=== PATIENT | female | born 1930 | race Caucasian/White ===

== ENCOUNTER 2016-07-04 02:49 | Inpatient (IN) | payer MEDICARE, OTHER ==
[2016-07-04] VITALS (8 sets, daily range): BP systolic 128–191; BP diastolic 60–94; PULSE 81–114; RESP 16–20; TEMP 97.5–99.5; O2SAT 94–100
[~2016-07-04] VITALS: Ht 165.1 cm; Wt 52.9 kg
[2016-07-04] MEDS ORDERED: PROPOFOL 200 MG/20 ML AMP IV ONE (03:00)
--- NOTE | 2016-07-04 03:34 | RADRPT ---
EXAM DATE/TIME: 07/04/2016 03:01 [facility] COMPARISON: No previous studies available for comparison. INDICATIONS : Right leg deformity from a fall. MEDICAL HISTORY : None. SURGICAL HISTORY : None. ENCOUNTER: Initial ACUITY: 1 day PAIN SCORE: 10/10 LOCATION: Right knee FINDINGS: A single limited lateral view of the right knee was obtained. The right knee is flexed. There is vinicius on artifact and the study is underpenetrated with poor bony detail. There is a fracture deformity of the distal femur with ill-defined fracture lines. There is overlying soft tissue swelling. There is o steopenia. CONCLUSION: 1. Limited single view suboptimal study. A repeat exam is recommended. 2. Distal femur fracture of indeterminate age but likely acute. Calderon Hart MD on July 04, 2016 at 3:30 Board Certified Radiologist. This report was verified electronically.
--- NOTE | 2016-07-04 03:34 | RADRPT ---
EXAM DATE/TIME: 07/04/2016 03:03 [facility] COMPARISON: No previous studies available for comparison. INDICATIONS : Shortness of breath. MEDICAL HISTORY : None. SURGICAL HISTORY : None. ENCOUNTER: Initial ACUITY: 1 day PAIN SCORE: 0/10 LOCATION: Bilateral chest FINDINGS: A single view of the chest demonstrates the lungs to be symmetrically aerated without evidence of mas s, infiltrate or effusion. The cardiomediastinal contours are unremarkable. Osseous structures are intact. There is overlying artifact. No echocardiogram leads. CONCLUSION: No acute disease. Calderon Hart MD on July 04, 2016 at 3:32 Board Certified Radiologist. This report was verified electronically.
[2016-07-04 03:44] LABS: BASOPHIL # 0.1 TH/MM3 (0-0.2); BASOPHIL % 0.3 % (0.0-2.0); EOSINOPHIL % 0.2 % (0.0-4.0); HEMATOCRIT 33.5 % (35.0-46.0); HEMO FLAGS DIFF FINAL; LYMPH % 6.1 % (9.0-44.0); LYMPHOCYTE # 1.3 TH/MM3 (1.0-4.8); MEAN CELL VOLUME 103.8 FL (80.0-100.0); MEAN CORPUSCULAR HGB CONC 32.7 % (32.0-36.0); MONO % 5.4 % (0.0-8.0); PLATELET COUNT 336 TH/MM3 (150-450); RED BLOOD COUNT 3.23 MIL/MM3 (4.00-5.30); RED CELL DISTRIBUTION WIDTH 15.6 % (11.6-17.2); WHITE BLOOD COUNT 21.6 TH/MM3 (4.0-11.0)
[2016-07-04 03:59] LABS: BICARBONATE 25.8 MEQ/L (21.0-32.0); POTASSIUM 3.7 MEQ/L (3.5-5.1)
[2016-07-04 04:31] LABS: BACTERIA, URINE RARE /hpf; BLOOD, URINE TRACE (NEG); COMMENT (UR) CULTURE INDICATED; CULTURE IF INDICATED CULTURE INDICATED; GLUCOSE,URINE NEG (NEG); KETONE, URINE NEG (NEG); MUCUS URINE FEW /lpf (OCC); NITRITE,URINE POS (NEG); PH, URINE 7.5 (5.0-8.5); URINE COLOR LIGHT-YELLOW (YELLW/STRAW)
--- NOTE | 2016-07-04 05:09 | PD ---
HPI Chief Complaint: Fall Time Seen by Provider: 02:49 Travel History International Travel<30 days: No Contact w/Intl Traveler<30days: No Traveled to known affect area: No History of Present Illness HPI Patient is an 85-year-old female presents emergency department for evaluation of right knee pain. Patient was apparently ambulating to the bathroom this morning when she slipped and fell. She is incredibly hard of hearing limiting her history. According to EMS she is normally alert and awake and oriented GCS of 15. She is sustained an assisted living facility for history rheumatoid arthritis. No history of loss of consciousness. She denies any head neck chest abdomen or pelvis pain. Symptoms happened just prior to arrival, she did receive morphine 10 mg IV in route with some pain relief. PFSH Past Medical History Anemia: Yes Arthritis: Yes Depression: Yes Hypertension: Yes Medical other: Yes (OSTEOPOROSIS) Social History Alcohol Use: No Tobacco Use: No Substance Use: No Allergies-Medications (Allergen,Severity, Reaction): Coded Allergies: No Known Allergies (Unverified , 07/04/16) Reported Meds & Prescriptions Reported Meds & Active Scripts Active Reported Acetaminophen 325 Mg Tab 650 Mg PO Q4-6H PRN Prednisone 5 Mg Tab 5 Mg PO DAILY Vitamin D (Cholecalciferol) 1,000 Unit Tab 5,000 Units PO DAILY Fosamax (Alendronate Sodium) 70 Mg Tab 70 Mg PO Q7D Remeron (Mirtazapine) 15 Mg Tab 15 Mg PO HS Methotrexate 2.5 Mg Tab 12.5 Mg PO Q7D Ocuvite (Multiple Vitamins W/ Minerals) 1 Tab 1 Tab PO DAILY Folic Acid 5 Mg Cap 1 Mg PO DAILY Celexa (Citalopram Hydrobromide) 20 Mg Tab 20 Mg PO DAILY Norvasc (Amlodipine Besylate) 5 Mg Tab 5 Mg PO DAILY Review of Systems Except as stated in HPI: all other systems reviewed are Neg Physical Exam Narrative GENERAL: Well-developed, thin appears quite uncomfortable. SKIN: Scattered bruises associated with IV start sites. HEAD: Atraumatic. Normocephalic. EYES: Pupils equal and round. No scleral icterus. No injection or drainage. ENT: No nasal bleeding or discharge. Mucous membranes pink and moist. NECK: Trachea midline. No JVD. CARDIOVASCULAR: Regularly tachycardic.. No murmur appreciated. RESPIRATORY: No accessory muscle use. Clear to auscultation. Breath sounds equal bilaterally. GASTROINTESTINAL: Abdomen soft, non-tender, nondistended. Hepatic and splenic margins not palpable. MUSCULOSKELETAL: There is an obvious deformity at the right knee/distal femur. Pulses motor and sensory intact distally in all 4 extremities. There is some bruising about the right lateral ankle, minimal tenderness at the medial malleolus. No tenderness at the hip, pelvis is stable. Left lower extremity is atraumatic, bilateral upper extremity's are atraumatic. There is some mild compartmental swelling of the distal femur. NEUROLOGICAL: Awake and alert. No obvious cranial nerve deficits. Motor grossly within normal limits. Normal speech. PSYCHIATRIC: Appropriate mood and affect; insight and judgment normal. Data Data Last Documented VS Vital Signs Date Time Temp Pulse Resp B/P Pulse Ox O2 Delivery O2 Flow Rate FiO2 07/04/16 02:57 99.3 114 16 191/94 98 Room Air 2 Orders Knee, Ltd (1 Or 2vws) (07/04/16 ) Electrocardiogram (07/04/16 02:49) Basic Metabolic Panel (Bmp) (07/04/16 02:49) Complete Blood Count With Diff (07/04/16 02:49) Chest, Single Ap (07/04/16 02:49) Ecg Monitoring (07/04/16 02:49) Iv Access Insert/Monitor (07/04/16 02:49) Oximetry (07/04/16 02:49) Oxygen Administration (07/04/16 02:49) Propofol 200 Mg/20 Ml Inj (Diprivan 200 (07/04/16 03:00) Femur (Ap & Lat/2vws) (07/04/16 ) Ankle, Limited (Ap&Lat) (07/04/16 ) Ct Brain W/O Iv Contrast(Rout) (07/04/16 ) Ct Cerv Spine W/O Contrast (07/04/16 ) Urinary Catheter Management HOMER.Q8H (07/04/16 04:02) Urinalysis - C+S If Indicated (07/04/16 04:05) Pelvis, Ap Only (Routine) (07/04/16 ) Immobilizer Knee 20 Inch (07/04/16 ) Ice Cuff (07/04/16 ) Urine Culture (07/04/16 04:00) Ceftriaxone Inj (Rocephin Inj) (07/04/16 05:15) Consult Orthopedic (07/04/16 ) (Hub Use Only)Inp Phy Cons/Ref (07/04/16 ) Admit To Inpatient (07/04/16 ) Vital Signs (Adult) Q4H (07/04/16 05:59) Activity Bed Rest (07/04/16 05:59) Flooring Salesperson / Telemetry .CONTINUOUS (07/04/16 05:59) Diet Npo (07/04/16 Breakfast) Sodium Chloride 0.9% Flush (Ns Flush) (07/04/16 06:00) Sodium Chloride 0.9% Flush (Ns Flush) (07/04/16 09:00) Ondansetron Inj (Zofran Inj) (07/04/16 06:00) Basic Metabolic Panel (Bmp) (07/05/16 06:00) Complete Blood Count With Diff (07/05/16 06:00) Case Management Consult (07/04/16 05:59) Naloxone Inj (Narcan Inj) (07/04/16 06:00) Inpatient Certification (07/04/16 ) Morphine Inj (Morphine Inj) (07/04/16 06:15) Ceftriaxone Inj (Rocephin Inj) (07/04/16 06:15) Ceftriaxone Inj (Rocephin Inj) (07/04/16 17:00) Admit Order (Ed Use Only) (07/04/16 ) Labs Laboratory Tests Test 07/04/16 07/04/16 03:00 04:00 White Blood Count 21.6 TH/MM3 Red Blood Count 3.23 MIL/MM3 Hemoglobin 11.0 GM/DL Hematocrit 33.5 % Mean Corpuscular Volume 103.8 FL Mean Corpuscular Hemoglobin 34.0 PG Mean Corpuscular Hemoglobin 32.7 % Concent Red Cell Distribution Width 15.6 % Platelet Count 336 TH/MM3 Mean Platelet Volume 7.5 FL Neutrophils (%) (Auto) 88.0 % Lymphocytes (%) (Auto) 6.1 % Monocytes (%) (Auto) 5.4 % Eosinophils (%) (Auto) 0.2 % Basophils (%) (Auto) 0.3 % Neutrophils # (Auto) 19.0 TH/MM3 Lymphocytes # (Auto) 1.3 TH/MM3 Monocytes # (Auto) 1.2 TH/MM3 Eosinophils # (Auto) 0.0 TH/MM3 Basophils # (Auto) 0.1 TH/MM3 CBC Comment DIFF FINAL Differential Comment Sodium Level 139 MEQ/L Potassium Level 3.7 MEQ/L Chloride Level 105 MEQ/L Carbon Dioxide Level 25.8 MEQ/L Anion Gap 8 MEQ/L Blood Urea Nitrogen 11 MG/DL Creatinine 0.71 MG/DL Estimat Glomerular Filtration 79 ML/MIN Rate Random Glucose 120 MG/DL Calcium Level 8.7 MG/DL Urine Color LIGHT-YELLOW Urine Turbidity CLEAR Urine pH 7.5 Urine Specific [place] 1.007 Urine Protein NEG mg/dL Urine Glucose (UA) NEG mg/dL Urine Ketones NEG mg/dL Urine Occult Blood TRACE Urine Nitrite POS Urine Bilirubin NEG Urine Urobilinogen LESS THAN 2.0 MG/DL Urine Leukocyte Esterase TRACE Urine RBC 1 /hpf Urine WBC 9 /hpf Urine Bacteria RARE /hpf Urine Mucus FEW /lpf Microscopic Urinalysis Comment CULTURE INDICATED MDM Medical Decision Making Medical Screen Exam Complete: Yes Emergency Medical Condition: Yes Interpretation(s) EKG shows sinus tachycardia at a rate of 114, single PVC, borderline left axis deviation, early R-wave transition. No concerning ST T changes. This borderline EKG. Differential Diagnosis Femur fracture, knee dislocation, ankle fracture, head injury, neck injury. Narrative Course Patient was roomed in emergency department, single view of the right knee shows a distal femur fracture with shortening. Patient was sedated by Dr. Horn and reduced the best of my ability. She had pulses intact before and after the reduction. X-rays were obtained of the majority of the right lower extremity. CT head and C-spine obtained. Patient is more comfortable after sedation and reduction. She was placed in knee immobilizer. Will be admitted for surgery. Last 24 hours Impressions Chest X-Ray 07/04/16 0249 Signed Impressions: Service Date/Time: June 03:03 - CONCLUSION: No acute disease. Calderon Hart MD Pelvis X-Ray 07/04/16 0000 Signed Impressions: Service Date/Time: June 04:46 - CONCLUSION: 1. Osteopenia with no acute fracture or malalignment. Calderon Hart MD Knee X-Ray 07/04/16 0000 Signed Impressions: Service Date/Time: June 03:01 - CONCLUSION: 1. Limited single view suboptimal study. A repeat exam is recommended. 2. Distal femur fracture of indeterminate age but likely acute. Calderon Hart MD Head CT 07/04/16 Signed Impressions: Service Date/Time: June 04:55 - CONCLUSION: 1. No acute hemorrhage or mass effect. 2. Moderate atrophic change. 3. Mucosal thickening and air-fluid levels in the paranasal sinuses most characteristic of acute sinusitis. Calderon Hart MD Femur X-Ray 07/04/16 Signed Impressions: Service Date/Time: June 04:40 - CONCLUSION: Distal oblique femoral fracture as described. Calderon Hart MD Cervical Spine CT 07/04/16 Signed Impressions: Service Date/Time: June 04:55 - CONCLUSION: Negative trauma CT. Calderon Hart MD Ankle X-Ray 07/04/16 Signed Impressions: Service Date/Time: June 04:35 - CONCLUSION: 1. Limited suboptimal two-view study. 2. Diffuse osteopenia with no acute fracture or malalignment. 3. Diffuse mild osteoarthritic change. Calderon Hart MD Cervical collar was removed, patient does have UA suggestive of urinary tract infection was given Rocephin. She discussed with Dr. Britton for admission and DrSuresh patient was discussed with Dr. Thomas and the patient is to be kept nothing by mouth until surgery likely today. Patient is been resting comfortably while in the emergency department. Diagnosis Primary Impression: Femoral distal fracture Qualified Code: S72.491A - Other closed fracture of distal end of right femur , initial encounter Admitting Information Admitting Physician Requests: Admit Condition: Stable Chano Song MD July 04, 2016 05:09
--- NOTE | 2016-07-04 05:14 | RADRPT ---
EXAM DATE/TIME: 07/04/2016 04:35 [facility] COMPARISON: No previous studies available for comparison. INDICATIONS : Right ankle pain post fall. MEDICAL HISTORY : None. SURGICAL HISTORY : None. ENCOUNTER: Initial ACUITY: 1 day PAIN SCORE: Non-responsive. LOCATION: Right ankle. FINDINGS: Limited AP and lateral views of the right ankle were obtained and not a standard 3 view trauma series limiting the sensitivity of the exam. There is diffuse moderate osteopenia with no visualized fractu re or malalignment. The ankle mortise is intact. There are mild degenerative changes in the mid and h indfoot with sclerosis and narrowing. There is mild soft tissue prominence. The inferior calcaneus wa s cut off the exam on the lateral view. CONCLUSION: 1. Limited suboptimal two-view study. 2. Diffuse osteopenia with no acute fracture or malalignment. 3. Diffuse mild osteoarthritic change. Calderon Hart MD on July 04, 2016 at 5:11 Board Certified Radiologist. This report was verified electronically.
[2016-07-04] MEDS ORDERED: cefTRIAXone INJ 1,000 MG in SODIUM CHLORIDE 0.9% INJ 100 ML IV ONE (05:15)
--- NOTE | 2016-07-04 05:17 | RADRPT ---
EXAM DATE/TIME: 07/04/2016 04:40 [facility] COMPARISON: KNEE RIGHT LTD (1 OR 2 VWS), July 04, 2016, 3:01. INDICATIONS : Right femur fracture. Post reduction. MEDICAL HISTORY : None. SURGICAL HISTORY : None. ENCOUNTER: Subsequent ACUITY: 1 day PAIN SCORE: Non-responsive. LOCATION: Right femur. FINDINGS: AP and lateral views of the right femur were obtained and again demonstrate an oblique distal acute f emoral fracture. There is distraction of the fracture fragments now measuring 1.1 cm on the lateral v iew with no abnormal angulation. The distal femoral fracture fragment and leg are displaced medially 1.3-1.9 cm. Degenerative changes are noted in the medial and lateral compartments of the knee with rachele int space loss and hypertrophic change. There is diffuse osteopenia. CONCLUSION: Distal oblique femoral fracture as described. Calderon Hart MD on July 04, 2016 at 5:12 Board Certified Radiologist. This report was verified electronically.
--- NOTE | 2016-07-04 05:18 | RADRPT ---
EXAM DATE/TIME: 07/04/2016 04:46 [facility] COMPARISON: FEMUR RIGHT (AP & LAT/2VWS), July 04, 2016, 4:40. INDICATIONS : Pelvis pain post fall. Right femur fracture. MEDICAL HISTORY : None. SURGICAL HISTORY : None. ENCOUNTER: Initial ACUITY: 1 day PAIN SCORE: Non-responsive. LOCATION: pelvis. FINDINGS: A single frontal view of the pelvis demonstrates no evidence of fracture. The bony pelvic ring is in tact. There is diffuse moderate osteopenia. The soft tissues are intact. Vascular calcifications are present. The sacrum is poorly visualized. CONCLUSION: 1. Osteopenia with no acute fracture or malalignment. Calderon Hart MD on July 04, 2016 at 5:16 Board Certified Radiologist. This report was verified electronically.
--- NOTE | 2016-07-04 05:20 | RADRPT ---
EXAM DATE/TIME: 07/04/2016 04:55 [facility] COMPARISON: No previous studies available for comparison. INDICATIONS : Trauma post fall. RADIATION DOSE: 44.18 CTDIvol (mGy) MEDICAL HISTORY : Hypertension. SURGICAL HISTORY : None. ENCOUNTER: Initial ACUITY: 1 day PAIN SCALE: 0/10 LOCATION: cranial TECHNIQUE: Multiple contiguous axial images were obtained of the head. Using automated exposure control and adj ustment of the mA and/or kV according to patient size, radiation dose was kept as low as reasonably a chievable to obtain optimal diagnostic quality images. FINDINGS: CEREBRUM: The ventricles are normal for age with diffuse moderate atrophic change with sulcal and ventricular p rominence. No evidence of midline shift, mass lesion, hemorrhage or acute infarction. No extra-axial fluid collections are seen. POSTERIOR FOSSA: The cerebellum and brainstem are intact. The 4th ventricle is midline. The cerebellopontine angle i s unremarkable. EXTRACRANIAL: The visualized portion of the orbits is intact. There is a large air-fluid level in left maxillary si nus with mucosal thickening. Because of thickening noted in the left ethmoidal air cells as well as t he left sphenoid sinus. There is mild mucosal thickening in the right maxillary sinus and ethmoidal a ir cells. SKULL: The calvaria is intact. No evidence of skull fracture. CONCLUSION: 1. No acute hemorrhage or mass effect. 2. Moderate atrophic change. 3. Mucosal thickening and air-fluid levels in the paranasal sinuses most characteristic of acute sinu sitis. Calderon Hart MD on July 04, 2016 at 5:17 Board Certified Radiologist. This report was verified electronically.
--- NOTE | 2016-07-04 05:22 | RADRPT ---
EXAM DATE/TIME: 07/04/2016 04:55 [facility] COMPARISON: No previous studies available for comparison. INDICATIONS : Trauma post fall. RADIATION DOSE: 33.66 CTDIvol (mGy) MEDICAL HISTORY : None SURGICAL HISTORY : None. ENCOUNTER: Initial ACUITY: 1 day PAIN SCALE: 0/10 LOCATION: neck TECHNIQUE: Volumetric scanning of the cervical spine was performed. Multiplanar reconstructions i n the sagittal, coronal and oblique axial planes were performed. Using automated exposure control a nd adjustment of the mA and/or kV according to patient size, radiation dose was kept as low as reason ably achievable to obtain optimal diagnostic quality images. FINDINGS: The sagittal reconstructions demonstrate normal alignment and normal prevertebral soft tissues. The d ens is intact and there is a normal atlantoaxial relationship. There is diffuse osteopenia. Degenerat jennifer disc changes are present with disc space narrowing and hypertrophic change. The axial images demonstrate that the vertebral bodies and posterior elements are intact. The soft ti ssues are within normal limits. There is no evidence of acute fracture or malalignment. There are deg enerative changes involving the facet joints. CONCLUSION: Negative trauma CT. Calderon Hart MD on July 04, 2016 at 5:19 Board Certified Radiologist. This report was verified electronically.
[2016-07-04] MEDS ORDERED: NALOXONE HCL 0.4 MG/ML AMP IV PRN (06:00)
[2016-07-04] MEDS ORDERED: SODIUM CHLORIDE 0.9% FLUSH 10 ML FLUSH IV FLUSH PRN (06:00)
[2016-07-04] MEDS ORDERED: cefTRIAXone INJ 1,000 MG in SODIUM CHLORIDE 0.9% INJ 100 ML IV SCH (06:15)
[2016-07-04] MEDS ORDERED: CELE20TA PO (06:25)
[2016-07-04] MEDS ORDERED: AMLO5 PO (06:25)
[2016-07-04] MEDS ORDERED: FOLI5CAP PO (06:25)
[2016-07-04] MEDS ORDERED: PRED5TAB PO (06:25)
[2016-07-04] MEDS ORDERED: METH2.5T PO (06:25)
[2016-07-04] MEDS ORDERED: VITA100064 PO (06:25)
[2016-07-04] MEDS ORDERED: REME15TA PO (06:25)
[2016-07-04] MEDS ORDERED: OCUVTAB PO (06:25)
[2016-07-04] MEDS ORDERED: ACET325T PO (06:25)
[2016-07-04] MEDS ORDERED: FOSA70TA PO (06:25)
[2016-07-04] MEDS: SODIUM CHLORIDE 0.9% FLUSH 10 ML FLUSH IV FLUSH SCH ×2 (07:18→20:52)
--- NOTE | 2016-07-04 13:48 | EKG ---
Date Performed: 07/04/2016 Time Performed: 02:59:31 PTAGE: 85 years EKG: SINUS TACHYCARDIA WITH OCCASIONAL VENTRICULAR PREMATURE COMPLEXES BORDERLINE LEFT AXIS PATRICIA ATION ABNORMAL RHYTHM ECG NO PREVIOUS TRACING DOCTOR: Jaydon Williamson Interpretating Date/Time 07/04/2016 13:43:38
[2016-07-04] MEDS: ONDANSETRON HCL 4 MG/2 ML VIAL IVP PRN (14:55)
[2016-07-04] MEDS: MORPHINE SULFATE 4 MG/ML INJ IV PUSH PRN (14:55)
[2016-07-04] MEDS ORDERED: MAGNESIUM HYDROXIDE SUSP 30 ML CUP PO PRN (16:45)
[2016-07-04] MEDS ORDERED: ACETAMINOPHEN/HYDROcodone 325 MG/7.5 MG TAB PO PRN (16:45)
[2016-07-04] MEDS ORDERED: ACETAMINOPHEN/HYDROcodone 325 MG/5 MG TAB PO PRN (16:45)
[2016-07-04] MEDS ORDERED: ACETAMINOPHEN 325 MG TAB PO PRN ×2 (16:45)
[2016-07-04] MEDS ORDERED: METHOTREXATE 2.5 MG TAB PO SCH (17:00)
[2016-07-04] MEDS: cefTRIAXone INJ 1,000 MG in SODIUM CHLORIDE 0.9% INJ 100 ML IV SCH (17:00)
--- NOTE | 2016-07-04 17:46 | HHI.HP ---
[facility] Unknown Admission Diagnosis Femur fracture Diagnoses: Chief Complaint: Right knee pain Travel History International Travel<30 Days: No Contact w/Intl Traveler <30 Da: No Traveled to Known Affected Are: No History of Present Illness This is an 85-year-old female who presents to the emergency department for evaluation of right knee pain. She was ambulating to the bathroom when she slipped and fell. Immediately complain of right knee pain unable to bear weight. Denies any other injuries. No head trauma or loss of consciousness. Denies any symptoms prior to the fall. Trauma workup shows right femur fracture. She is hard of hearing making it challenging to obtain history. At this time, she is frustrated because she has been asked same questions throughout the day. She is also hungry and requesting food. Case discussed with RN. [facility] records also reviewed. Review of Systems Musculoskeletal: COMPLAINS OF: Joint pain Except as stated in HPI: all other systems reviewed are Neg Past Family Social History Past Medical History Rheumatoid arthritis, anemia, depression and hypertension Past Surgical History Appendectomy Reported Medications Acetaminophen 325 Mg Tab 650 Mg PO Q4-6H PRN Prednisone 5 Mg Tab 5 Mg PO DAILY Vitamin D (Cholecalciferol) 1,000 Unit Tab 5,000 Units PO DAILY Fosamax (Alendronate Sodium) 70 Mg Tab 70 Mg PO Q7D Remeron (Mirtazapine) 15 Mg Tab 15 Mg PO HS Methotrexate 2.5 Mg Tab 12.5 Mg PO Q7D Ocuvite (Multiple Vitamins W/ Minerals) 1 Tab 1 Tab PO DAILY Folic Acid 5 Mg Cap 1 Mg PO DAILY Celexa (Citalopram Hydrobromide) 20 Mg Tab 20 Mg PO DAILY Norvasc (Amlodipine Besylate) 5 Mg Tab 5 Mg PO DAILY Allergies: Coded Allergies: No Known Allergies (Unverified , 07/04/16) Family History Coronary artery disease Social History Does not smoke or drink Physical Exam Vital Signs Vital Signs Date Time Temp Pulse Resp B/P Pulse Ox O2 Delivery O2 Flow Rate FiO2 07/04/16 15:52 97.5 94 19 137/64 94 07/04/16 14:33 89 137/66 99 Nasal Cannula 3 07/04/16 12:34 Nasal Cannula 3 07/04/16 11:52 83 20 134/62 100 Nasal Cannula 3 07/04/16 09:58 81 18 141/64 100 Nasal Cannula 3 07/04/16 08:04 82 18 129/60 100 Nasal Cannula 3 07/04/16 07:10 86 18 151/64 100 Nasal Cannula 3 07/04/16 02:57 99.3 114 16 191/94 98 Room Air 2 07/04/16 02:54 97 Room Air Physical Exam GENERAL: This is a well-nourished, well-developed patient, in no apparent distress. SKIN: No rashes, ecchymoses or lesions. Cool and dry. Bruising bilateral upper extremity, skin tear right elbow and bilateral leg HEAD: Atraumatic. Normocephalic. No temporal or scalp tenderness. EYES: Pupils equal round and reactive. Extraocular motions intact. No scleral icterus. No injection or drainage. ENT: Nose without bleeding, purulent drainage or septal hematoma. Throat without erythema, tonsillar hypertrophy or exudate. Uvula midline. Airway patent. NECK: Trachea midline. No JVD or lymphadenopathy. Supple, nontender, no meningeal signs. CARDIOVASCULAR: Regular rate and rhythm without murmurs, gallops, or rubs. RESPIRATORY: Clear to auscultation. Breath sounds equal bilaterally. No wheezes , rales, or rhonchi. GASTROINTESTINAL: Abdomen soft, non-tender, nondistended. No guarding. MUSCULOSKELETAL: Extremities without clubbing, cyanosis, or edema. Right lower extremity in a CKS. No calf tenderness. Negative Homans sign bilaterally. Bilateral hand deformity consistent with rheumatoid arthritis NEUROLOGICAL: Awake and alert. Cranial nerves II through XII intact. Motor and sensory grossly within normal limits. Five out of 5 muscle strength in all muscle groups. Normal speech. Laboratory Laboratory Tests Test 07/04/16 07/04/16 03:00 04:00 White Blood Count 21.6 Red Blood Count 3.23 Hemoglobin 11.0 Hematocrit 33.5 Mean Corpuscular Volume 103.8 Mean Corpuscular Hemoglobin 34.0 Mean Corpuscular Hemoglobin 32.7 Concent Red Cell Distribution Width 15.6 Platelet Count 336 Mean Platelet Volume 7.5 Neutrophils (%) (Auto) 88.0 Lymphocytes (%) (Auto) 6.1 Monocytes (%) (Auto) 5.4 Eosinophils (%) (Auto) 0.2 Basophils (%) (Auto) 0.3 Neutrophils # (Auto) 19.0 Lymphocytes # (Auto) 1.3 Monocytes # (Auto) 1.2 Eosinophils # (Auto) 0.0 Basophils # (Auto) 0.1 CBC Comment DIFF FINAL Differential Comment Sodium Level 139 Potassium Level 3.7 Chloride Level 105 Carbon Dioxide Level 25.8 Anion Gap 8 Blood Urea Nitrogen 11 Creatinine 0.71 Estimat Glomerular Filtration 79 Rate Random Glucose 120 Calcium Level 8.7 Urine Color LIGHT-YELLOW Urine Turbidity CLEAR Urine pH 7.5 Urine Specific [place] 1.007 Urine Protein NEG Urine Glucose (UA) NEG Urine Ketones NEG Urine Occult Blood TRACE Urine Nitrite POS Urine Bilirubin NEG Urine Urobilinogen LESS THAN 2.0 Urine Leukocyte Esterase TRACE Urine RBC 1 Urine WBC 9 Urine Bacteria RARE Urine Mucus FEW Microscopic Urinalysis Comment CULTURE INDICATED Date/Time Procedure Status Source Growth 07/04/16 04:00 Urine Culture Received Urine Random Urine Pending Result Diagram: 07/04/16 0300 07/04/16 0300 Imaging EEG tracing interpreted by me with sinus tachycardia and occasional PVC Chest x-ray image interpreted by me with no acute cardiopulmonary disease Last Impressions Chest X-Ray 07/04/16 0249 Signed Impressions: Service Date/Time: June 03:03 - CONCLUSION: No acute disease. Calderon Hart MD Pelvis X-Ray 07/04/16 0000 Signed Impressions: Service Date/Time: June 04:46 - CONCLUSION: 1. Osteopenia with no acute fracture or malalignment. Calderon Hart MD Knee X-Ray 07/04/16 0000 Signed Impressions: Service Date/Time: June 03:01 - CONCLUSION: 1. Limited single view suboptimal study. A repeat exam is recommended. 2. Distal femur fracture of indeterminate age but likely acute. Calderon Hart MD Head CT 07/04/16 0000 Signed Impressions: Service Date/Time: June 04:55 - CONCLUSION: 1. No acute hemorrhage or mass effect. 2. Moderate atrophic change. 3. Mucosal thickening and air-fluid levels in the paranasal sinuses most characteristic of acute sinusitis. Calderon Hart MD Femur X-Ray 07/04/16 0000 Signed Impressions: Service Date/Time: June 04:40 - CONCLUSION: Distal oblique femoral fracture as described. Calderon Hart MD Cervical Spine CT 07/04/16 0000 Signed Impressions: Service Date/Time: June 04:55 - CONCLUSION: Negative trauma CT. Calderon Hart MD Ankle X-Ray 07/04/16 0000 Signed Impressions: Service Date/Time: June 04:35 - CONCLUSION: 1. Limited suboptimal two-view study. 2. Diffuse osteopenia with no acute fracture or malalignment. 3. Diffuse mild osteoarthritic change. Calderon Hart MD Assessment and Plan Problem List: (1) Femoral distal fracture ICD Code: S72.409A Status: Acute Assessment and Plan This is an 85-year-old female who presents to the emergency department for evaluation of right knee pain after she slipped and fell. Trauma workup shows right femur fracture. Right femur fracture. Orthopedic surgery has been consulted for further evaluation and treatment. If she needs surgery and requires general anesthesia , I would recommend obtaining imaging studies of the cervical spine to evaluate atlantoaxial joint stability because of history of Rheumatoid arthritis. Pain management with Lortab and IV morphine Rheumatoid arthritis. Continue methotrexate and folic acid Urinary tract infection. Continue Rocephin and discontinue Ellington catheter as soon as possible Macrocytic anemia. Continue folic acid and obtain B-12 and folate levels. Leukocytosis on steroids. We'll monitor. She is clinically stable Hyperglycemia. Obtain fasting glucose in the morning Chronic medical conditions of Depression and hypertension. Stable continue outpatient medications as appropriate DVT prophylaxis with SCD and early ambulation. Pharmacological prophylaxis postoperatively Discussed Condition With Patient and nursing staff Physician Certification 2 Midnight Certification Type: Admission for Inpatient Services Order for Inpatient Services The services are ordered in accordance with Medicare regulations or non- Medicare payer requirements, as applicable. In the case of services not specified as inpatient-only, they are appropriately provided as inpatient services in accordance with the 2-midnight benchmark. Estimated LOS (days): 2 days is the estimated time the patient will need to remain in the hospital, assuming treatment plan goals are met and no additional complications. Post-Hospital Plan: SNF Problem Qualifiers (1) Femoral distal fracture: Qualified Code: S72.491A - Other closed fracture of distal end of right femur, initial encounter Donnell De La Garza MD July 04, 2016 17:46
--- NOTE | 2016-07-04 19:57 | PD.CONS ---
cc: Wayne So Jr., MD HPI Service [facility] Consult Requested By Primary Care Physician Unknown Admission Diagnosis Femur fracture Diagnoses: (1) Femoral distal fracture Diagnosis: Principal Chief Complaint: right femur fx History of Present Illness 85-year-old female with past medical history of depression hypertension and anemia is admitted s/p fall with right leg pain and inability to bear weght. During my examination she appeared Confused. X-ray taken the emergency department reveal displaced right distal femur fracture. She was ambulating to the bathroom when she slipped and fell. Denies any head injuries. Denies loss of consciousness. Currently patient's pain is 5 out of 10, in CKS, exacerbated by any range of motion, relieved at rest and with IV pain medicine, pain is sharp nonradiating, not associated with any paresthesia and numbness to the right lower extremity. She denies any chest pain or shortness of breath. Review of Systems Musculoskeletal: COMPLAINS OF: Joint pain Except as stated in HPI: all other systems reviewed are Neg Past Family Social History Past Medical History Rheumatoid arthritis, anemia, depression and hypertension Past Surgical History Appendectomy Reported Medications Acetaminophen 325 Mg Tab 650 Mg PO Q4-6H PRN Prednisone 5 Mg Tab 5 Mg PO DAILY Vitamin D (Cholecalciferol) 1,000 Unit Tab 5,000 Units PO DAILY Fosamax (Alendronate Sodium) 70 Mg Tab 70 Mg PO Q7D Remeron (Mirtazapine) 15 Mg Tab 15 Mg PO HS Methotrexate 2.5 Mg Tab 12.5 Mg PO Q7D Ocuvite (Multiple Vitamins W/ Minerals) 1 Tab 1 Tab PO DAILY Folic Acid 5 Mg Cap 1 Mg PO DAILY Celexa (Citalopram Hydrobromide) 20 Mg Tab 20 Mg PO DAILY Norvasc (Amlodipine Besylate) 5 Mg Tab 5 Mg PO DAILY Allergies: Coded Allergies: No Known Allergies (Unverified , 07/04/16) Family History Coronary artery disease Social History Does not smoke or drink Review of Systems Cardiovascular: DENIES: Chest pain, Palpitations, Syncope, Dyspnea on Exertion , PND, Lower Extremity Edema, Orthopnea, Claudication Gastrointestinal: DENIES: Abdominal pain, Black stools, Bloody stools, Constipation, Diarrhea, Nausea, Vomiting, Difficulty Swallowing, Anorexia Genitourinary: DENIES: Abnormal vaginal bleeding, Dysmenorrhea, Dyspareunia, Sexual dysfunction, Urinary frequency, Urinary incontinence, Urgency, Hematuria , Dysuria, Nocturia, Vaginal discharge Integumentary: DENIES: Abnormal pigmentation, Pruritus, Rash, Nail changes, Breast masses, Breast skin changes, Nipple discharge Immunologic/allergic: DENIES: Eczema, Urticaria Past Family Social History Past Medical History Rheumatoid arthritis, anemia, depression and hypertension Past Surgical History Appendectomy Allergies: Coded Allergies: No Known Allergies (Unverified , 07/04/16) Active Ordered Medications Current Medications Medications (Trade) Dose Ordered Sig/Hung Route Start Time Stop Time Status Last Admin (NS Flush) 2 ml UNSCH PRN IV FLUSH 07/04/16 06:00 (NS Flush) 2 ml BID IV FLUSH 07/04/16 09:00 (Zofran Inj) 4 mg Q6H PRN IVP 07/04/16 06:00 07/04/16 14:55 (Narcan Inj) 0.4 mg UNSCH PRN IV 07/04/16 06:00 Morphine Sulfate 2 mg 2 mg Q3H PRN IV PUSH 07/04/16 06:15 07/04/16 14:55 (Rocephin Inj/NS Inj) 100 ml @ 200 mls/hr Q12H IV 07/04/16 17:00 07/04/16 17:00 (Tylenol) 650 mg Q4H PRN PO 07/04/16 16:45 (Colace) 100 mg Q12HR PO 07/04/16 21:00 (Milk Of Magnesia Liq) 30 ml Q12H PRN PO 07/04/16 16:45 (Tylenol) 650 mg Q6H PRN PO 07/04/16 16:45 ([place] 5-325 Mg) 1 tab Q4H PRN PO 07/04/16 16:45 ([place] 7.5-325 Mg) 1 tab Q4H PRN PO 07/04/16 16:45 (Norvasc) 5 mg DAILY PO 07/05/16 09:00 (CeleXA) 20 mg DAILY PO 07/05/16 09:00 (Folate) 1 mg DAILY PO 07/05/16 09:00 (Remeron) 15 mg HS PO 07/04/16 21:00 (Deltasone) 5 mg DAILY PO 07/05/16 09:00 (Methotrexate Pf Inj) 12.5 mg Q7D SQ 07/04/16 20:00 Reported Meds & Active Scripts Active Reported Acetaminophen 325 Mg Tab 650 Mg PO Q4-6H PRN Prednisone 5 Mg Tab 5 Mg PO DAILY Vitamin D (Cholecalciferol) 1,000 Unit Tab 5,000 Units PO DAILY Fosamax (Alendronate Sodium) 70 Mg Tab 70 Mg PO Q7D Remeron (Mirtazapine) 15 Mg Tab 15 Mg PO HS Methotrexate 2.5 Mg Tab 12.5 Mg PO Q7D Ocuvite (Multiple Vitamins W/ Minerals) 1 Tab 1 Tab PO DAILY Folic Acid 5 Mg Cap 1 Mg PO DAILY Celexa (Citalopram Hydrobromide) 20 Mg Tab 20 Mg PO DAILY Norvasc (Amlodipine Besylate) 5 Mg Tab 5 Mg PO DAILY Family History Coronary artery disease Social History Does not smoke or drink Physical Exam Vital Signs Vital Signs Date Time Temp Pulse Resp B/P Pulse Ox O2 Delivery O2 Flow Rate FiO2 07/04/16 15:52 97.5 94 19 137/64 94 07/04/16 14:33 89 137/66 99 Nasal Cannula 3 07/04/16 12:34 Nasal Cannula 3 07/04/16 11:52 83 20 134/62 100 Nasal Cannula 3 07/04/16 09:58 81 18 141/64 100 Nasal Cannula 3 07/04/16 08:04 82 18 129/60 100 Nasal Cannula 3 07/04/16 07:10 86 18 151/64 100 Nasal Cannula 3 07/04/16 02:57 99.3 114 16 191/94 98 Room Air 2 07/04/16 02:54 97 Room Air Physical Exam Patient appears confused. Not answering questions coherently. No acute distress. Normocephalic atraumatic Pulmonary: Normal respiratory effort. Right lower extremity: Knee immobilizer in place. Grossly neurovascularly intact. distal femur deformity. Swelling around the knee. Skin is intact. Palpable dorsalis pedis and posterior tibial pulses. Supple compartments. Negative Homans. Left lower extremity. Neurovascular intact. No deformities. Bilateral upper extremity. No deformities. Grossly neurovascular intact. Strong pulses. Fingers are warm and well-perfused. Laboratory Laboratory Tests Test 07/04/16 07/04/16 03:00 04:00 White Blood Count 21.6 Red Blood Count 3.23 Hemoglobin 11.0 Hematocrit 33.5 Mean Corpuscular Volume 103.8 Mean Corpuscular Hemoglobin 34.0 Mean Corpuscular Hemoglobin 32.7 Concent Red Cell Distribution Width 15.6 Platelet Count 336 Mean Platelet Volume 7.5 Neutrophils (%) (Auto) 88.0 Lymphocytes (%) (Auto) 6.1 Monocytes (%) (Auto) 5.4 Eosinophils (%) (Auto) 0.2 Basophils (%) (Auto) 0.3 Neutrophils # (Auto) 19.0 Lymphocytes # (Auto) 1.3 Monocytes # (Auto) 1.2 Eosinophils # (Auto) 0.0 Basophils # (Auto) 0.1 CBC Comment DIFF FINAL Differential Comment Sodium Level 139 Potassium Level 3.7 Chloride Level 105 Carbon Dioxide Level 25.8 Anion Gap 8 Blood Urea Nitrogen 11 Creatinine 0.71 Estimat Glomerular Filtration 79 Rate Random Glucose 120 Calcium Level 8.7 Urine Color LIGHT-YELLOW Urine Turbidity CLEAR Urine pH 7.5 Urine Specific [place] 1.007 Urine Protein NEG Urine Glucose (UA) NEG Urine Ketones NEG Urine Occult Blood TRACE Urine Nitrite POS Urine Bilirubin NEG Urine Urobilinogen LESS THAN 2.0 Urine Leukocyte Esterase TRACE Urine RBC 1 Urine WBC 9 Urine Bacteria RARE Urine Mucus FEW Microscopic Urinalysis Comment CULTURE INDICATED Date/Time Procedure Status Source Growth 07/04/16 04:00 Urine Culture Received Urine Random Urine Pending Result Diagram: 07/04/16 0300 07/04/16 0300 Assessment & Plan Assessment and Plan 85-year-old female with a history of dementia status post fall sustaining right distal femur fracture. The fracture is in stable. She is neurovascularly intact grossly. She is a poor historian. I recommend operative intervention with plate and screw osteosynthesis versus retrograde intramedullary ector. I discussed my treatment plans with the patient, as well as risks, benefits and alternatives of surgical Intervention versus nonoperative treatment. In this case, the risks of operative intervention involves bleeding, infection, risks of damage to neurovascular structures, the risk of needing further surgery, posttraumatic arthritis and the risks involved with complication from anesthesia. We will proceed with the above procedure. The patient accepts these risks; understands and agrees with my recommendations. I also discussed my proposed postoperative care and follow-up plan. All questions were answered. Nothing by mouth []. Patient consented. Thanks for the consult, thanks for allowing me to participate in this patient's medical care. Plan for OR FRIDAY. Wayne So Jr., MD July 04, 2016 19:57
[2016-07-04] MEDS ORDERED: METHOTREXATE SOD PF 50 MG/2 ML VIAL SQ SCH (20:00)
[2016-07-04] MEDS: DOCUSATE SODIUM 100 MG CAP PO SCH (20:52)
[2016-07-04] MEDS: MIRTAZAPINE 15 MG TAB PO SCH (20:52)
[2016-07-05] VITALS: BP 130/61; PULSE 88; RESP 17; TEMP 98.1; O2SAT 93
[2016-07-05] MEDS ORDERED: SODIUM CHLORID 0.9% 500 ML IV PRN (03:45)
[2016-07-05] MEDS ORDERED: LACTATED RINGER'S 1000 ML IV PRN (03:45)
[2016-07-05] MEDS ORDERED: CHLORHEXIDINE GLUCONATE 2 % 1 PACK (2 CLOTHS) TOPICAL PRN (03:45)
[2016-07-05] MEDS ORDERED: INSULIN HUMAN REGULAR 1,000 UNITS/10 ML VIAL SQ PRN (03:45)
[2016-07-05] MEDS ORDERED: POVIDONE IODINE 5% (ANTISEPSIS KIT) 4 APPLICATIONS EACH NARE PRN (03:45)
[2016-07-05 04:00] VITALS: BP 137/59; PULSE 107; RESP 16; TEMP 98.4; O2SAT 93
[2016-07-05] MEDS ORDERED: DILTIAZEM HCL 30 MG TAB PO ONE (04:00)
[2016-07-05] MEDS: cefTRIAXone INJ 1,000 MG in SODIUM CHLORIDE 0.9% INJ 100 ML IV SCH ×2 (04:26→16:15)
[2016-07-05 05:22] LABS: AUTOMATED NEUTROPHIL # 14.5 TH/MM3 (1.8-7.7); BASOPHIL % 0.1 % (0.0-2.0); EOSINOPHIL % 0.2 % (0.0-4.0); HEMATOCRIT 30.5 % (35.0-46.0); HEMO FLAGS DIFF FINAL; LYMPH % 8.2 % (9.0-44.0); LYMPHOCYTE # 1.4 TH/MM3 (1.0-4.8); MEAN CELL VOLUME 103.9 FL (80.0-100.0); MEAN CORPUSCULAR HEMOGLOBIN 35.7 PG (27.0-34.0); MEAN CORPUSCULAR HGB CONC 34.4 % (32.0-36.0); MONO % 4.8 % (0.0-8.0); NEUT % 86.7 % (16.0-70.0); PLATELET COUNT 315 TH/MM3 (150-450); RED BLOOD COUNT 2.93 MIL/MM3 (4.00-5.30); RED CELL DISTRIBUTION WIDTH 15.6 % (11.6-17.2); WHITE BLOOD COUNT 16.7 TH/MM3 (4.0-11.0)
[2016-07-05 05:49] LABS: BICARBONATE 27.6 MEQ/L (21.0-32.0); POTASSIUM 3.8 MEQ/L (3.5-5.1)
[2016-07-05] MEDS: MORPHINE SULFATE 4 MG/ML INJ IV PUSH PRN (06:22)
[2016-07-05] MEDS: ONDANSETRON HCL 4 MG/2 ML VIAL IVP PRN (06:27)
[2016-07-05 07:37] VITALS: BP 108/57; PULSE 103; RESP 18; TEMP 97.7; O2SAT 92
[2016-07-05] MEDS: SODIUM CHLORIDE 0.9% FLUSH 10 ML FLUSH IV FLUSH SCH ×2 (08:01→21:00)
[2016-07-05] MEDS: CITALOPRAM HYDROBROMIDE 20 MG TAB PO SCH (08:01)
[2016-07-05] MEDS: predniSONE 5 MG TAB PO SCH (08:02)
[2016-07-05] MEDS: amLODIPine BESYLATE 5 MG TAB PO SCH (08:02)
[2016-07-05] MEDS: DOCUSATE SODIUM 100 MG CAP PO SCH (08:02)
[2016-07-05] MEDS: FOLIC ACID 1 MG TAB PO SCH (08:02)
--- NOTE | 2016-07-05 09:33 | HHI.PR ---
Subjective Remarks Follow-up right femur fracture. Developed tachycardia overnight. Denies palpitations. Repeat EKG tracing interpreted by me with sinus tachycardia. No shortness of breath, chest pain and palpitations. Discussed with RN Objective Vitals Vital Signs Date Time Temp Pulse Resp B/P Pulse Ox O2 Delivery O2 Flow Rate FiO2 07/05/16 07:37 97.7 103 18 108/57 92 07/05/16 04:00 98.4 107 16 137/59 93 07/05/16 00:00 98.1 88 17 130/61 93 07/04/16 20:00 99.5 105 16 128/62 94 07/04/16 15:52 97.5 94 19 137/64 94 07/04/16 14:33 89 137/66 99 Nasal Cannula 3 07/04/16 12:34 Nasal Cannula 3 07/04/16 11:52 83 20 134/62 100 Nasal Cannula 3 07/04/16 09:58 81 18 141/64 100 Nasal Cannula 3 I/O 07/04/16 07/04/16 07/04/16 07/05/16 07/05/16 07/05/16 07:00 15:00 23:00 07:00 15:00 23:00 Intake Total 240 ml 0 ml Output Total 250 ml 200 ml Balance -10 ml -200 ml Intake Oral 240 ml 0 ml Output Urine Total 250 ml 200 ml Result Diagram: 07/05/16 0451 07/05/16 0451 Imaging Last Impressions Chest X-Ray 07/04/16 0249 Signed Impressions: Service Date/Time: June 03:03 - CONCLUSION: No acute disease. Calderon Hart MD Pelvis X-Ray 07/04/16 0000 Signed Impressions: Service Date/Time: June 04:46 - CONCLUSION: 1. Osteopenia with no acute fracture or malalignment. Calderon Hart MD Knee X-Ray 07/04/16 0000 Signed Impressions: Service Date/Time: June 03:01 - CONCLUSION: 1. Limited single view suboptimal study. A repeat exam is recommended. 2. Distal femur fracture of indeterminate age but likely acute. Calderon Hart MD Head CT 07/04/16 0000 Signed Impressions: Service Date/Time: June 04:55 - CONCLUSION: 1. No acute hemorrhage or mass effect. 2. Moderate atrophic change. 3. Mucosal thickening and air-fluid levels in the paranasal sinuses most characteristic of acute sinusitis. Calderon Hart MD Femur X-Ray 07/04/16 Signed Impressions: Service Date/Time: June 04:40 - CONCLUSION: Distal oblique femoral fracture as described. Calderon Hart MD Cervical Spine CT 07/04/16 Signed Impressions: Service Date/Time: June 04:55 - CONCLUSION: Negative trauma CT. Calderon Hart MD Ankle X-Ray 07/04/16 Signed Impressions: Service Date/Time: June 04:35 - CONCLUSION: 1. Limited suboptimal two-view study. 2. Diffuse osteopenia with no acute fracture or malalignment. 3. Diffuse mild osteoarthritic change. Calderon Hart MD Objective Remarks GENERAL: This is a well-nourished, well-developed patient, in no apparent distress. SKIN: No rashes, ecchymoses or lesions. Cool and dry. Bruising bilateral upper extremity, skin tear right elbow and bilateral leg. HEAD: Atraumatic. Normocephalic. No temporal or scalp tenderness. EYES: Pupils equal round and reactive. Extraocular motions intact. No scleral icterus. No injection or drainage. ENT: Nose without bleeding, purulent drainage or septal hematoma. Throat without erythema, tonsillar hypertrophy or exudate. Uvula midline. Airway patent. NECK: Trachea midline. No JVD or lymphadenopathy. Supple, nontender, no meningeal signs. CARDIOVASCULAR: Tachycardic RESPIRATORY: Clear to auscultation. Breath sounds equal bilaterally. No wheezes , rales, or rhonchi. GASTROINTESTINAL: Abdomen soft, non-tender, nondistended. No guarding. MUSCULOSKELETAL: Extremities without clubbing, cyanosis, or edema. Right lower extremity in a CKS. No calf tenderness. Negative Homans sign bilaterally. Bilateral hand deformity consistent with rheumatoid arthritis NEUROLOGICAL: Awake and alert. Cranial nerves II through XII intact. Motor and sensory grossly within normal limits. Five out of 5 muscle strength in all muscle groups. Normal speech. A/P Problem List: (1) Femoral distal fracture ICD Code: S72.409A Status: Acute Assessment and Plan This is an 85-year-old female who presents to the emergency department for evaluation of right knee pain after she slipped and fell. Trauma workup shows right femur fracture. Right femur fracture. Orthopedic surgery has been consulted for further evaluation and treatment. Patient for definitive repair today If she requires general anesthesia, I would recommend obtaining imaging studies of the cervical spine to evaluate atlantoaxial joint stability because of history of Rheumatoid arthritis. Pain management with Lortab and IV morphine Rheumatoid arthritis. Continue methotrexate and folic acid Urinary tract infection. Continue Rocephin and discontinue Ellington catheter as soon as possible Macrocytic anemia. Continue folic acid and obtain B-12 and folate levels. Leukocytosis on steroids. We'll monitor. She is clinically stable Hyperglycemia. Obtain fasting glucose in the morning Sinus tachycardia likely secondary to pain. Obtain TSH and magnesium. Continue to monitor telemetry Chronic medical conditions of Depression and hypertension. Stable continue outpatient medications as appropriate DVT prophylaxis with SCD and early ambulation. Pharmacological prophylaxis postoperatively Discharge Planning Not ready for this at Problem Qualifiers (1) Femoral distal fracture: Qualified Code: S72.491A - Other closed fracture of distal end of right femur, initial encounter Donnell De La Garza MD July 05, 2016 09:33
[2016-07-05] MEDS: LACTIC ACID (AMMONIUM LACTATE) 12% LOTION 225 GM BTL TOPICAL SCH ×2 (09:45→21:06)
[2016-07-05 11:36] VITALS: BP 148/65; PULSE 107; RESP 18; TEMP 98; O2SAT 91
[2016-07-05 12:37] LABS: MAGNESIUM 2.2 MG/DL (1.5-2.5)
[2016-07-05] MEDS ORDERED: PHENYLEPH/NS 1000 MCG/10 ML SYR IV ONE (13:03)
[2016-07-05] MEDS ORDERED: PROPOFOL 200 MG/20 ML AMP IV ONE (13:03)
[2016-07-05] MEDS ORDERED: LACTATED RINGER'S 1000 ML INJ 1,000 ML IV ONE (13:03)
[2016-07-05] MEDS ORDERED: ONDANSETRON HCL 4 MG/2 ML VIAL IV PUSH ONE (13:03)
[2016-07-05] MEDS ORDERED: ePHEDrine/NS 25 MG/5 ML SYR IV ONE (13:03)
[2016-07-05] MEDS ORDERED: NEOSTIGMINE 3 MG/3 ML SYR IV ONE (13:03)
[2016-07-05] MEDS ORDERED: ACETAMINOPHEN 1000 MG/100 ML VIAL IV ONE (15:07)
[2016-07-05] MEDS ORDERED: NORC5TAB PO (15:14)
[2016-07-05] MEDS ORDERED: MORPHINE SULFATE 8 MG/ML INJ IV PUSH PRN (15:15)
[2016-07-05] MEDS ORDERED: ZOLPIDEM TARTRATE 5 MG TAB PO PRN (15:15)
[2016-07-05] MEDS ORDERED: PROMETHAZINE HCL 25 MG TAB PO PRN (15:15)
[2016-07-05] MEDS ORDERED: ACETAMINOPHEN/HYDROcodone 325 MG/5 MG TAB PO PRN (15:15)
[2016-07-05] MEDS ORDERED: Post-op Orders (for Pharmacy) MISC XX ONE (15:15)
[2016-07-05] MEDS ORDERED: GENTAMICIN SULFATE 80 MG/2 ML VIAL ONE (15:16)
[2016-07-05] MEDS ORDERED: VANCOMYCIN HCL 1000 MG VIAL ONE (15:28)
[2016-07-05] MEDS ORDERED: SODIUM CHLOR 0.9% 250 ML INJ 250 ML ONE (15:28)
[2016-07-05] MEDS ORDERED: SUGAMMADEX SODIUM 200 MG/2 ML VIAL IV PUSH ONE ×2 (17:04)
[2016-07-05] MEDS ORDERED: HYDROmorphone HCL PF 2 MG/ML VIAL ONE (17:04)
[2016-07-05] MEDS ORDERED: *RESP: ALBUTEROL 2.5 MG/3 ML NEB (PRN) PERIprocedural Use ONLY NEB ONE (17:26)
[2016-07-05] MEDS ORDERED: fentaNYL CITRATE 250 MCG/5 ML AMP ONE (17:29)
--- NOTE | 2016-07-05 17:31 | PD.OP ---
cc: Wayne So Jr., MD Operative Report Date of Surgery: July 05, 2016 Preoperative Diagnosis: Right distal femur fracture Postoperative Diagnosis: Same Procedure: Right femur retrograde intramedullary ector fixation Anesthesia: Gen. Surgeon: Wayne So French Instructor(s): Calderon Morales PA-C The surgical procedure was assisted by my physician education administrative assistant. My physician education administrative assistant presence was necessary throughout this case for the manipulation and positioning of the surgical extremity. My physician education administrative assistant was assisting me throughout the duration of this procedure. The skill set of a physician education administrative assistant was medically necessary to complete this procedure. During the surgical case, the surgical specialist was working at the back table and the physician education administrative assistant was directly assisting me. Resident Surgeon: None Operation and Findings: Implants used: 12mm x 360mm [place] supracondylar nail PROCEDURE DETAILS: Patient was seen and evaluated preoperatively. she is s/p fall and sustained injury to the femur. The patient has significant thigh pain from distal femur fracture. The risk and benefits of surgery were discussed in depth with the patient to include bleeding, infection, nonunion, malunion, need for hip replacement, painful hardware, as well as medical competitions including blood clots, stroke, heart attack, and . Informed consent was obtained. Operative site was marked. Patient was brought to the operating room and placed on fracture table. IV sedation was administered by anesthesiologist. Timeout procedure was performed. Hip and leg were prepped with alcohol followed by Hibiclens and draped in the usual sterile fashion. IV antibiotics were given prior to incision. To achieve adequate open reduction, a small incision was made just lateral to the fracture site. Dissection was taken through the iliotibial band. The fracture was identified. Fracture fragments where sharply debrided and cleaned. Fracture fragments were reduced and reduction was provisionally maintained with a large reduction clamp. A three inch incision was made proximal at the inferior pole of the patella into the patellar tendon. Subcutaneous tissue was dissected bluntly. Guidepin was placed just anterior to Blumensaat's line at the distal femur and advanced into the femoral canal. Traction was being pulled at the knee, 30 over a triangle. Fluoroscopy confirmed appropriate guidepin placement. An opening reamer was placed over the guidepin. A long ball tipped guide pin was now placed down the femoral canal into the center of the proximal femur at the level of the lesser. The nail length was now measured. Fluoroscopy confirmed appropriate guidepin placement. Flexible reamers were now passed over the guidepin to ream the intramedullary canal. The nail was attached to the insertion handle. Nail was now placed over the guidepin into the femoral canal. Fluoroscopy confirmed appropriate nail placement. A second incision was made over the lateral thigh. Cannulas were placed through the insertion handle and the distal Screws length were measured. Appropriate length lag screw were now placed. Four Distal screws were placed. Next, using perfect sauk-suiattle technique 2 (two) proximal interlocking screws was placed. Screw holes was predrilled and screw length was measured. Final fluoroscopy revealed well aligned fracture with well-placed hardware. Incision was closed with #1 Vicryl in the patella tendon and IT band, 3-0 Vicryl in the subcutaneous tissue and yong at the skin. Sterile dressings were applied. Patient was awakened and transferred to recovery room. POSTP-OP PLAN OF ACTIVITY Antibiotics: Ancef, vancomycin - 24hrs post op Antiocoagulation: Lovenox Weight bearing status: NWB. CKS at all times Dressing: Change daily, by RN starting postop day 2 Wayne So Jr., MD July 05, 2016 17:31
[2016-07-05] MEDS: KETOROLAC TROMETHAMINE 30 MG/ML (IVP) VIAL IVP SCH (17:50)
[2016-07-05] MEDS ORDERED: *morphine SULFATE 8 MG/ML PERIprocedure ONLY ONE (18:25)
--- NOTE | 2016-07-05 19:45 | RADRPT ---
EXAM DATE/TIME: 07/05/2016 16:51 [facility] COMPARISON: FEMUR RIGHT (AP & LAT/2VWS), July 04, 2016, 4:40. INDICATIONS : Right femur retrograde IM ector. MEDICAL HISTORY : Distal oblique femoral fracture SURGICAL HISTORY : None. ENCOUNTER: Subsequent ACUITY: 2 days PAIN SCORE: Non-responsive. LOCATION: Right Femur. FINDINGS: Interim rodding of the distal shaft fracture of the right femur. Normal alignment. No acute complicat ion demonstrated. CONCLUSION: Expected radiographic appearance post rodding of the distal shaft fracture of the right femur. Normal alignment. Refugio Ernandez MD on July 05, 2016 at 19:43 Board Certified Radiologist. This report was verified electronically.
[2016-07-05 20:00] VITALS: BP 120/56; PULSE 80; PULSE 88; RESP 16; TEMP 96.7; O2SAT 97
[2016-07-05] MEDS: MIRTAZAPINE 15 MG TAB PO SCH (21:07)
[2016-07-05] MEDS: ACETAMINOPHEN/HYDROcodone 325 MG/5 MG TAB PO PRN (21:07)
--- NOTE | 2016-07-05 21:11 | EKG ---
Date Performed: 07/05/2016 Time Performed: 01:03:56 PTAGE: 85 years EKG: Sinus rhythm with PAC(s) Left axis deviation Possible inferior infarct - age undetermined Abnormal ECG NO PREVIOUS TRACING DOCTOR: Blane Andrade Interpretating Date/Time 07/05/2016 21:08:58
[2016-07-06] VITALS (8 sets, daily range): BP systolic 105–132; BP diastolic 54–65; PULSE 89–131; RESP 16–17; TEMP 96–99.5; O2SAT 90–98
[2016-07-06] MEDS: KETOROLAC TROMETHAMINE 30 MG/ML (IVP) VIAL IVP SCH ×5 (00:20→22:48)
[2016-07-06] MEDS: ENOXAPARIN SODIUM 30 MG/0.3 ML SYRINGE SQ SCH ×2 (05:47→17:24)
[2016-07-06] MEDS: cefTRIAXone INJ 1,000 MG in SODIUM CHLORIDE 0.9% INJ 100 ML IV SCH (05:47)
[2016-07-06] MEDS: ACETAMINOPHEN/HYDROcodone 325 MG/5 MG TAB PO PRN ×2 (06:42→20:41)
--- NOTE | 2016-07-06 07:22 | PD.ORT.PN ---
Subjective Post Op Day #: 1 Subjective Remarks leg painful from knee immobilizer. Objective Vitals Vital Signs Date Time Temp Pulse Resp B/P Pulse Ox O2 Delivery O2 Flow Rate FiO2 07/06/16 04:00 96.5 89 17 128/58 94 07/06/16 00:00 96.0 105 16 105/54 96 07/05/16 20:00 88 07/05/16 20:00 96.7 80 16 120/56 97 07/05/16 19:14 Nasal Cannula 2.00 07/05/16 18:30 88 16 139/71 99 Nasal Cannula 2 07/05/16 18:15 90 16 136/71 99 Nasal Cannula 2 07/05/16 18:00 95 16 140/63 99 Nasal Cannula 2 07/05/16 17:45 98 16 131/63 99 Nasal Cannula 2 07/05/16 17:25 97.8 105 16 134/67 100 Simple Mask 6 07/05/16 11:36 98.0 107 18 148/65 91 07/05/16 07:37 97.7 103 18 108/57 92 I/O 07/05/16 07/05/16 07/05/16 07/06/16 07/06/16 07/06/16 07:00 15:00 23:00 07:00 15:00 23:00 Intake Total 0 ml 1350 ml 843 ml Output Total 200 ml 550 ml 230 ml Balance -200 ml 800 ml 613 ml Intake Oral 0 ml 236 ml IV Total 150 ml 607 ml Other 1200 ml Output Urine Total 200 ml 450 ml 230 ml Estimated Blood Loss 100 ml Result Diagram: 07/05/16 0451 07/05/16 0451 Objective Remarks in bed, nad dressing c/d/i neg homans appears to be nvi Assessment & Plan Ortho Post Op Day #: 1 Problem List: Assessment and Plan 85-year-old female with a history of dementia status post fall sustaining right distal femur fracture. ORIF R distal femur fx POD#1 NWB - patient is non-ambulator daily dressing changes lovenox d/c planning f/up dr. alan 2 weeks Dionicio Avilez July 06, 2016 07:22
[2016-07-06] MEDS: LACTIC ACID (AMMONIUM LACTATE) 12% LOTION 225 GM BTL TOPICAL SCH ×2 (07:38→20:42)
[2016-07-06] MEDS: amLODIPine BESYLATE 5 MG TAB PO SCH (07:38)
[2016-07-06] MEDS: CITALOPRAM HYDROBROMIDE 20 MG TAB PO SCH (07:38)
[2016-07-06] MEDS: predniSONE 5 MG TAB PO SCH (07:38)
[2016-07-06] MEDS: FOLIC ACID 1 MG TAB PO SCH (07:38)
[2016-07-06] MEDS: SODIUM CHLORIDE 0.9% FLUSH 10 ML FLUSH IV FLUSH SCH ×2 (07:44→20:40)
--- NOTE | 2016-07-06 10:47 | HHI.PR ---
Subjective Remarks Follow-up femur fracture, tachycardia and UTI. States she is okay. No episode of tachycardia discussed with RN Objective Vitals Vital Signs Date Time Temp Pulse Resp B/P Pulse Ox O2 Delivery O2 Flow Rate FiO2 07/06/16 07:42 18 07/06/16 04:00 96.5 89 17 128/58 94 07/06/16 00:00 96.0 105 16 105/54 96 07/05/16 20:00 88 07/05/16 20:00 96.7 80 16 120/56 97 07/05/16 19:14 Nasal Cannula 2.00 07/05/16 18:30 88 16 139/71 99 Nasal Cannula 2 07/05/16 18:15 90 16 136/71 99 Nasal Cannula 2 07/05/16 18:00 95 16 140/63 99 Nasal Cannula 2 07/05/16 17:45 98 16 131/63 99 Nasal Cannula 2 07/05/16 17:25 97.8 105 16 134/67 100 Simple Mask 6 07/05/16 11:36 98.0 107 18 148/65 91 I/O 07/05/16 07/05/16 07/05/16 07/06/16 07/06/16 07/06/16 07:00 15:00 23:00 07:00 15:00 23:00 Intake Total 0 ml 1350 ml 843 ml Output Total 200 ml 550 ml 230 ml Balance -200 ml 800 ml 613 ml Intake Oral 0 ml 236 ml IV Total 150 ml 607 ml Other 1200 ml Output Urine Total 200 ml 450 ml 230 ml Estimated Blood Loss 100 ml Result Diagram: 07/05/16 0451 07/05/16 0451 Imaging Last Impressions Femur X-Ray 07/05/16 0000 Signed Impressions: Service Date/Time: Tuesday, July 05, 2016 16:51 - CONCLUSION: Expected radiographic appearance post rodding of the distal shaft fracture of the right femur. Normal alignment. Refugio Ernandez MD Chest X-Ray 07/04/16 0249 Signed Impressions: Service Date/Time: June 03:03 - CONCLUSION: No acute disease. Calderon Hart MD Pelvis X-Ray 07/04/16 0000 Signed Impressions: Service Date/Time: June 04:46 - CONCLUSION: 1. Osteopenia with no acute fracture or malalignment. Calderon Hart MD Knee X-Ray 07/04/16 0000 Signed Impressions: Service Date/Time: June 03:01 - CONCLUSION: 1. Limited single view suboptimal study. A repeat exam is recommended. 2. Distal femur fracture of indeterminate age but likely acute. Calderon Hart MD Head CT 07/04/16 0000 Signed Impressions: Service Date/Time: June 04:55 - CONCLUSION: 1. No acute hemorrhage or mass effect. 2. Moderate atrophic change. 3. Mucosal thickening and air-fluid levels in the paranasal sinuses most characteristic of acute sinusitis. Calderon Hart MD Cervical Spine CT 07/04/16 0000 Signed Impressions: Service Date/Time: June 04:55 - CONCLUSION: Negative trauma CT. Calderon Hart MD Ankle X-Ray 07/04/16 Signed Impressions: Service Date/Time: June 04:35 - CONCLUSION: 1. Limited suboptimal two-view study. 2. Diffuse osteopenia with no acute fracture or malalignment. 3. Diffuse mild osteoarthritic change. Calderon Hart MD Objective Remarks GENERAL: This is a well-nourished, well-developed patient, in no apparent distress. SKIN: No rashes, ecchymoses or lesions. Cool and dry. Bruising bilateral upper extremity, skin tear right elbow and bilateral leg. HEAD: Atraumatic. Normocephalic. No temporal or scalp tenderness. EYES: Pupils equal round and reactive. Extraocular motions intact. No scleral icterus. No injection or drainage. ENT: Nose without bleeding, purulent drainage or septal hematoma. Throat without erythema, tonsillar hypertrophy or exudate. Uvula midline. Airway patent. NECK: Trachea midline. No JVD or lymphadenopathy. Supple, nontender, no meningeal signs. CARDIOVASCULAR: Regular rate and rhythm RESPIRATORY: Clear to auscultation. Breath sounds equal bilaterally. No wheezes , rales, or rhonchi. GASTROINTESTINAL: Abdomen soft, non-tender, nondistended. No guarding. MUSCULOSKELETAL: Extremities without clubbing, cyanosis, or edema. No calf tenderness. Negative Homans sign bilaterally. Bilateral hand deformity consistent with rheumatoid arthritis NEUROLOGICAL: Awake and alert. Cranial nerves II through XII intact. Motor and sensory grossly within normal limits. Five out of 5 muscle strength in all muscle groups. Normal speech. Procedures Right femur retrograde intramedullary ector fixation A/P Problem List: (1) Femoral distal fracture ICD Code: S72.409A Status: Acute Assessment and Plan This is an 85-year-old female who presents to the emergency department for evaluation of right knee pain after she slipped and fell. Trauma workup shows right femur fracture. Right femur fracture status post repair. Stable continue postoperative care with wound care, physical therapy, incentive spirometry, DVT prophylaxis Pain management with Lortab and IV morphine Rheumatoid arthritis. Continue methotrexate and folic acid Urinary tract infection. Culture with Escherichia coli and discontinue Rocephin and start ciprofloxacin for 1 more day and discontinued Ell[place] catheter Macrocytic anemia. Continue folic acid. Adequate B-12 and folate levels. Leukocytosis on steroids. Improving We'll monitor. She is clinically stable Hyperglycemia. Fasting glucose 88 Sinus tachycardia likely secondary to pain. Unremarkable TSH and magnesium. Improved. Continue to monitor telemetry Chronic medical conditions of Depression and hypertension. Stable continue outpatient medications as appropriate DVT prophylaxis with SCD and early ambulation. Continue Lovenox Discharge Planning Discharge when cleared by orthopedic surgery Problem Qualifiers (1) Femoral distal fracture: Qualified Code: S72.491A - Other closed fracture of distal end of right femur, initial encounter Donnell De La Garza MD July 06, 2016 10:47
--- NOTE | 2016-07-06 10:50 | HHI.DCPOC ---
Discharge Care Plan Diagnosis: (1) Femoral distal fracture Your Health Problems Are: Difficulty with ADL Exercise Tolerance Goals to Promote Your Health * To prevent worsening of your condition and complications * To maintain your health at the optimal level Directions to Meet Your Goals Take your medications as prescribed Follow your dietary instruction Follow activity as directed Keep your appointments as scheduled Take your immunizations and boosters as scheduled If your symptoms worsen call your PCP, if no PCP go to Urgent Care Center or Emergency Room Smoking is Dangerous to Your Health. Avoid second hand smoke Call the 24-hour hour crisis hotline for domestic abuse at Donnell De La Garza MD July 06, 2016 10:50
[2016-07-06] MEDS: DOCUSATE SODIUM 100 MG CAP PO SCH (20:40)
[2016-07-06] MEDS: CIPROFLOXACIN 250 MG TAB PO SCH (20:41)
[2016-07-06] MEDS: MIRTAZAPINE 15 MG TAB PO SCH (20:41)
[2016-07-06] MEDS ORDERED: METOPROLOL TARTRATE 25 MG TAB PO ONE (22:30)
[2016-07-07] VITALS (9 sets, daily range): BP systolic 110–149; BP diastolic 56–66; PULSE 60–106; RESP 16–20; TEMP 96.9–99.8; O2SAT 90–98
[2016-07-07] MEDS: KETOROLAC TROMETHAMINE 30 MG/ML (IVP) VIAL IVP SCH ×2 (05:04→11:08)
[2016-07-07] MEDS: ENOXAPARIN SODIUM 30 MG/0.3 ML SYRINGE SQ SCH ×2 (05:04→17:07)
[2016-07-07] MEDS: SODIUM CHLORIDE 0.9% FLUSH 10 ML FLUSH IV FLUSH SCH ×2 (07:41→22:28)
--- NOTE | 2016-07-07 07:47 | PD.ORT.PN ---
Subjective Post Op Day #: 2 Subjective Remarks leg painful from knee immobilizer. Objective Vitals Vital Signs Date Time Temp Pulse Resp B/P Pulse Ox O2 Delivery O2 Flow Rate FiO2 07/07/16 04:00 98.5 63 18 132/59 90 07/07/16 00:50 103 112/58 07/06/16 22:44 97.6 131 17 115/65 92 07/06/16 20:00 99.5 118 17 113/56 92 07/06/16 19:05 Room Air 07/06/16 16:00 97.7 102 16 132/61 91 07/06/16 12:22 18 07/06/16 12:00 96.5 93 16 109/54 90 07/06/16 08:35 92 Nasal Cannula 3.00 07/06/16 08:00 96.4 99 16 120/55 98 I/O 07/06/16 07/06/16 07/06/16 07/07/16 07/07/16 07/07/16 07:00 15:00 23:00 07:00 15:00 23:00 Intake Total 843 ml 720 ml 919 ml 755 ml Output Total 230 ml 400 ml Balance 613 ml 720 ml 519 ml 755 ml Intake Oral 236 ml 720 ml 240 ml 120 ml IV Total 607 ml 679 ml 635 ml Output Urine Total 230 ml 400 ml # Voids 0 1 # Bowel Movements 0 0 Result Diagram: 07/05/16 0451 07/05/16 0451 Objective Remarks in bed, nad dressing c/d/i thigh soft neg homans appears to be nvi Assessment & Plan Assessment and Plan 85-year-old female with a history of dementia status post fall sustaining right distal femur fracture. ORIF R distal femur fx POD#2 NWB - patient is non-ambulator daily dressing changes lovenox d/c planning - ortho stable and cleared once medically stable f/up dr. alan 2 weeks Dionicio Avilez July 07, 2016 07:47
[2016-07-07] MEDS: CIPROFLOXACIN 250 MG TAB PO SCH (09:00)
[2016-07-07] MEDS: CITALOPRAM HYDROBROMIDE 20 MG TAB PO SCH (09:00)
[2016-07-07] MEDS: FOLIC ACID 1 MG TAB PO SCH (09:00)
[2016-07-07] MEDS: predniSONE 5 MG TAB PO SCH (09:00)
[2016-07-07] MEDS: DOCUSATE SODIUM 100 MG CAP PO SCH ×2 (09:00→22:29)
[2016-07-07] MEDS: amLODIPine BESYLATE 5 MG TAB PO SCH (09:00)
[2016-07-07] MEDS: LACTIC ACID (AMMONIUM LACTATE) 12% LOTION 225 GM BTL TOPICAL SCH ×2 (09:03→22:29)
[2016-07-07] MEDS ORDERED: BISACODYL 10 MG SUPP RECTAL ONE (09:30)
--- NOTE | 2016-07-07 10:17 | RADRPT ---
EXAM DATE/TIME: 07/07/2016 09:51 [facility] COMPARISON: CHEST SINGLE AP, July 04, 2016, 3:03. INDICATIONS : Cough. MEDICAL HISTORY : None. SURGICAL HISTORY : None. ENCOUNTER: Initial ACUITY: 1 day PAIN SCORE: 0/10 LOCATION: Bilateral chest FINDINGS: There is patchy basilar airspace disease increased from previous. Cardiomegaly. Small left effusion s uspected. Degenerative changes of the spine. Thyroid humeral heads are noted bilaterally. Aortic calc ification. CONCLUSION: Basilar airspace disease and small left effusion suspected. Star Ferguson MD on July 07, 2016 at 10:15 Board Certified Radiologist. This report was verified electronically.
--- NOTE | 2016-07-07 12:02 | HHI.PR ---
Subjective Remarks Follow-up tachycardia. Another episode last night improved with Lopressor. He is showing sinus tachycardia but unable to rule out A. fib. Patient with cough chest x-ray image interpreted by me shows basilar airspace disease. Discussed with nephew yesterday. Discussed with RN today, orthopedic surgery has cleared patient for discharge but will hold secondary to pneumonia with episode of tachycardia high likelihood of readmission. Objective Vitals Vital Signs Date Time Temp Pulse Resp B/P Pulse Ox O2 Delivery O2 Flow Rate FiO2 07/07/16 08:00 98.8 100 20 143/66 97 07/07/16 04:00 98.5 63 18 132/59 90 07/07/16 00:50 103 112/58 07/06/16 22:44 97.6 131 17 115/65 92 07/06/16 20:00 99.5 118 17 113/56 92 07/06/16 19:05 Room Air 07/06/16 16:00 97.7 102 16 132/61 91 07/06/16 12:22 18 07/06/16 12:00 96.5 93 16 109/54 90 I/O 07/06/16 07/06/16 07/06/16 07/07/16 07/07/16 07/07/16 06:59 14:59 22:59 06:59 14:59 22:59 Intake Total 843 ml 720 ml 919 ml 755 ml Output Total 230 ml 400 ml Balance 613 ml 720 ml 519 ml 755 ml Intake Oral 236 ml 720 ml 240 ml 120 ml IV Total 607 ml 679 ml 635 ml Output Urine Total 230 ml 400 ml # Voids 0 1 # Bowel Movements 0 0 Result Diagram: 07/05/16 0451 07/05/16 0451 Imaging Last Impressions Chest X-Ray 07/07/16 0000 Signed Impressions: Service Date/Time: Thursday, July 07, 2016 09:51 - CONCLUSION: Basilar airspace disease and small left effusion suspected. Star Ferguson MD Femur X-Ray 07/05/16 0000 Signed Impressions: Service Date/Time: Tuesday, July 05, 2016 16:51 - CONCLUSION: Expected radiographic appearance post rodding of the distal shaft fracture of the right femur. Normal alignment. Refugio Ernandez MD Pelvis X-Ray 07/04/16 0000 Signed Impressions: Service Date/Time: June 04:46 - CONCLUSION: 1. Osteopenia with no acute fracture or malalignment. Calderon Hart MD Knee X-Ray 07/04/16 Signed Impressions: Service Date/Time: June 03:01 - CONCLUSION: 1. Limited single view suboptimal study. A repeat exam is recommended. 2. Distal femur fracture of indeterminate age but likely acute. Calderon Hart MD Head CT 07/04/16 Signed Impressions: Service Date/Time: June 04:55 - CONCLUSION: 1. No acute hemorrhage or mass effect. 2. Moderate atrophic change. 3. Mucosal thickening and air-fluid levels in the paranasal sinuses most characteristic of acute sinusitis. Calderon Hart MD Cervical Spine CT 07/04/16 Signed Impressions: Service Date/Time: June 04:55 - CONCLUSION: Negative trauma CT. Calderon Hart MD Ankle X-Ray 07/04/16 Signed Impressions: Service Date/Time: June 04:35 - CONCLUSION: 1. Limited suboptimal two-view study. 2. Diffuse osteopenia with no acute fracture or malalignment. 3. Diffuse mild osteoarthritic change. Calderon Hart MD Objective Remarks GENERAL: This is a well-nourished, well-developed patient, in no apparent distress. SKIN: No rashes, ecchymoses or lesions. Cool and dry. Bruising bilateral upper extremity, skin tear right elbow and bilateral leg. HEAD: Atraumatic. Normocephalic. No temporal or scalp tenderness. EYES: Pupils equal round and reactive. Extraocular motions intact. No scleral icterus. No injection or drainage. ENT: Nose without bleeding, purulent drainage or septal hematoma. Throat without erythema, tonsillar hypertrophy or exudate. Uvula midline. Airway patent. NECK: Trachea midline. No JVD or lymphadenopathy. Supple, nontender, no meningeal signs. CARDIOVASCULAR: Regular rate and rhythm RESPIRATORY: Decreased Breath sounds equal bilaterally. No wheezes, rales, or rhonchi. GASTROINTESTINAL: Abdomen soft, non-tender, nondistended. No guarding. MUSCULOSKELETAL: Extremities without clubbing, cyanosis, or edema. No calf tenderness. Negative Homans sign bilaterally. Bilateral hand deformity consistent with rheumatoid arthritis NEUROLOGICAL: Awake and alert. Cranial nerves II through XII intact. Motor and sensory grossly within normal limits. Five out of 5 muscle strength in all muscle groups. Normal speech. Procedures Right femur retrograde intramedullary ector fixation A/P Problem List: (1) Femoral distal fracture ICD Code: S72.409A Status: Acute Assessment and Plan This is an 85-year-old female who presents to the emergency department for evaluation of right knee pain after she slipped and fell. Trauma workup shows right femur fracture. Right femur fracture status post repair. Stable continue postoperative care with wound care, physical therapy, incentive spirometry, DVT prophylaxis Pain management with Lortab and IV morphine Rheumatoid arthritis. Continue methotrexate and folic acid Urinary tract infection. Culture with Escherichia coli status post Rocephin and ciprofloxacin Macrocytic anemia. Continue folic acid. Adequate B-12 and folate levels. Leukocytosis on steroids. Improving We'll monitor. She is clinically stable Hyperglycemia. Fasting glucose 88 Sinus tachycardia likely secondary to pain. Unremarkable TSH and magnesium. Episode of telemetry strips are reviewed unable to rule out A. fib. Check echocardiogram. Continue to monitor telemetry. Consider scheduled Lopressor Bibasilar airspace disease likely hospital-acquired pneumonia. Obtain sputum and blood culture and start Zosyn Chronic medical conditions of Depression and hypertension. Stable continue outpatient medications as appropriate DVT prophylaxis with SCD and early ambulation. Continue Lovenox Discharge Planning Discharge when cleared by orthopedic surgery Problem Qualifiers (1) Femoral distal fracture: Qualified Code: S72.491A - Other closed fracture of distal end of right femur, initial encounter Donnell De La Garza MD July 07, 2016 12:02
[2016-07-07] MEDS ORDERED: METO-309 PO (12:06)
[2016-07-07] MEDS ORDERED: AUGM875T PO (12:06)
[2016-07-07] MEDS ORDERED: PILL SPLITTER OTHER PRN (12:15)
[2016-07-07] MEDS: METOPROLOL TARTRATE 25 MG TAB PO SCH ×2 (13:50→22:29)
[2016-07-07] MEDS: PIPERACIL-TAZO 3.375 GM PREMIX 50 ML IV SCH ×2 (13:51→17:54)
[2016-07-07] MEDS: MIRTAZAPINE 15 MG TAB PO SCH (22:29)
[2016-07-08] VITALS (9 sets, daily range): BP systolic 124–177; BP diastolic 58–78; PULSE 66–109; RESP 14–20; TEMP 96.7–100.3; O2SAT 91–100
[2016-07-08] MEDS: PIPERACIL-TAZO 3.375 GM PREMIX 50 ML IV SCH ×4 (00:05→18:23)
[2016-07-08] MEDS: ENOXAPARIN SODIUM 30 MG/0.3 ML SYRINGE SQ SCH ×2 (05:25→16:54)
[2016-07-08 07:40] LABS: AUTOMATED NEUTROPHIL # 10.4 TH/MM3 (1.8-7.7); BASOPHIL % 0.2 % (0.0-2.0); EOSINOPHIL # 0.1 TH/MM3 (0-0.4); EOSINOPHIL % 0.8 % (0.0-4.0); HEMATOCRIT 22.3 % (35.0-46.0); HEMO FLAGS DIFF FINAL; LYMPH % 8.5 % (9.0-44.0); MEAN CELL VOLUME 102.8 FL (80.0-100.0); MEAN CORPUSCULAR HEMOGLOBIN 35.7 PG (27.0-34.0); MEAN CORPUSCULAR HGB CONC 34.7 % (32.0-36.0); MONO % 3.3 % (0.0-8.0); NEUT % 87.2 % (16.0-70.0); PLATELET COUNT 330 TH/MM3 (150-450); RED BLOOD COUNT 2.17 MIL/MM3 (4.00-5.30); RED CELL DISTRIBUTION WIDTH 15.3 % (11.6-17.2); WHITE BLOOD COUNT 11.9 TH/MM3 (4.0-11.0)
[2016-07-08 08:11] LABS: BICARBONATE 27.9 MEQ/L (21.0-32.0); MAGNESIUM 2.4 MG/DL (1.5-2.5); POTASSIUM 3.7 MEQ/L (3.5-5.1)
[2016-07-08] MEDS: predniSONE 5 MG TAB PO SCH (08:11)
[2016-07-08] MEDS: FOLIC ACID 1 MG TAB PO SCH (08:11)
[2016-07-08] MEDS: amLODIPine BESYLATE 5 MG TAB PO SCH (08:11)
[2016-07-08] MEDS: METOPROLOL TARTRATE 25 MG TAB PO SCH ×2 (08:11→21:44)
[2016-07-08] MEDS: DOCUSATE SODIUM 100 MG CAP PO SCH ×2 (08:11→21:44)
[2016-07-08] MEDS: CITALOPRAM HYDROBROMIDE 20 MG TAB PO SCH (08:11)
[2016-07-08] MEDS: SODIUM CHLORIDE 0.9% FLUSH 10 ML FLUSH IV FLUSH SCH ×2 (09:00→21:44)
[2016-07-08] MEDS: LACTIC ACID (AMMONIUM LACTATE) 12% LOTION 225 GM BTL TOPICAL SCH ×2 (09:00→21:45)
--- NOTE | 2016-07-08 10:09 | EC ---
Study Study Date:07/08/2016 STUDY CONCLUSIONS SUMMARY - Left ventricle: The cavity size was normal. Wall thickness was increased in a pattern of mild LVH. Systolic function was at the lower limits of normal. The estimated ejection fraction was in the range of 50% to 55%. Wall motion was normal; there were no regional wall motion abnormalities. - Aortic valve: Transvalvular velocity was minimally increased. There was very mild stenosis. Mild regurgitation. Valve area: 1.71cm^2(VTI). Valve area: 1.71cm^2 (Vmax). - Right ventricle: The cavity size was mildly dilated. Wall thickness was normal. - Right atrium: The atrium was mildly dilated. - Tricuspid valve: Mild-moderate regurgitation. - Pulmonary arteries: Systolic pressure was mildly to moderately increased. PA peak pressure: 48mm Hg (S). If LV function is below 40, please consider prescribing an ACEI or ARB or document rationale for non-use. PROCEDURE DATA STUDY STATUS: Elective. Procedure: Transthoracic echocardiography. Image quality was good. Scanning was performed from the parasternal, apical, and subcostal acoustic windows. Study completion: The patient tolerated the procedure well. Transthoracic echocardiography. M-mode, complete 2D, complete spectral Doppler, and color Doppler. Height: Height: 65in. Weight: Weight: 123.7lb. Body mass index: BMI: 20.6kg/m^2. Body surface area: BSA: 1.61m^2. Patient status: Inpatient. CARDIAC ANATOMY LEFT VENTRICLE: The cavity size was normal. Wall thickness was increased in a pattern of mild LVH. Systolic function was at the lower limits of normal. The estimated ejection fraction was in the range of 50% to 55%. Wall motion was normal; there were no regional wall motion abnormalities. AORTIC VALVE: Trileaflet; normal thickness leaflets. Doppler: Transvalvular velocity was minimally increased. There was very mild stenosis. Mild regurgitation. Valve area: 1.71cm^2(VTI). Indexed valve area: 1.06cm^2/m^2 (VTI). Valve area: 1.71cm^2 (Vmax). Indexed valve area: 1.06cm^2/m^2 (Vmax). Mean gradient: 3mm Hg (S). AORTA: Aortic root: The aortic root was normal in size. MITRAL VALVE: Structurally normal valve. Doppler: Transvalvular velocity was within the normal range. There was no evidence for stenosis. Trace to mild regurgitation. Peak gradient: 2mm Hg (D). LEFT ATRIUM: The atrium was normal in size. RIGHT VENTRICLE: The cavity size was mildly dilated. Wall thickness was normal. PULMONIC VALVE: Doppler: Transvalvular velocity was within the normal range. There was no evidence for stenosis. No regurgitation. TRICUSPID VALVE: Structurally normal valve. Doppler: Transvalvular velocity was within the normal range. Mild-moderate regurgitation. PULMONARY ARTERY: The main pulmonary artery was normal-sized. Systolic pressure was mildly to moderately increased. RIGHT ATRIUM: The atrium was mildly dilated. PERICARDIUM: There was no pericardial effusion. SYSTEMIC VEINS: Inferior vena cava: The vessel was normal in size. Patient weight: 123.7lb _Ejection fraction:_ 65-75% _Fractional shortening:_ 32% up to 5Kg 5-11.5Kg 11.6-22.9Kg 23-45Kg 45-57Kg Aortic Root 7-13 <17 13-22 17-27 17-27 LA diam 6-13 <23 24-38 33-47 37-40 RVID 10-17 7-15 7-15 7-18 8-17 LVIDd 12-22 <32 24-38 33-47 37-40 LVPW 2-4 3-6 5-7 6-8 7-8 IVS 2-4 3-6 5-7 6-8 7-8 BASIC MEASUREMENTS ADULT NORMAL Left ventricle LV internal dimension, ED, chordal *42.6 mm 43-52 level, PLAX LV internal dimension, ES, chordal 34.8 mm 23-38 level, PLAX Fractional shortening, chordal level, *18 % >29 PLAX LV posterior wall thickness, ED 9.55 mm IVS/LVPW ratio, ED 1 <1.3 Ventricular septum Septal thickness, ED 9.53 mm Aortic valve Leaflet separation 20 mm 15-26 Aorta Root diameter, ED 31 mm Left atrium Anterior-posterior dimension 28 mm Anterior-posterior dimension index 1.74 cm/m^2 <2.2 BASIC MEASUREMENTS ADULT NORMAL Aortic valve Leaflet separation 20 mm 15-26 DOPPLER MEASUREMENTS ADULT NORMAL Main pulmonary artery Pressure, S *48 mm Hg =30 Aortic valve Peak velocity, S 124 cm/s Mean velocity, S 88.6 cm/s VTI, S 24.5 cm Mean gradient, S 3 mm Hg Valve area, VTI 1.71 cm^2 Valve area index, VTI 1.06 cm^2/m^2 Valve area, Vmax 1.71 cm^2 Valve area index, Vmax 1.06 cm^2/m^2 Regurgitant velocity, ED 422 cm/s Regurgitant deceleration 2270 cm/s^2 Regurgitant pressure half-time 569 ms Regurgitant gradient, ED 71 mm Hg Mitral valve Peak E-wave velocity 71.1 cm/s Peak A-wave velocity 86.4 cm/s Deceleration time 190 ms 150-230 Peak gradient, D 2 mm Hg Peak E/A ratio 0.8 Tricuspid valve Regurgitant peak velocity 303 cm/s Peak RV-RA gradient, S 37 mm Hg Maximal regurgitant velocity 303 cm/s Systemic veins Estimated CVP 10 mm Hg Right ventricle RV pressure, S *49 mm Hg <30 Pulmonic valve Peak velocity, S 54.9 cm/s LEGEND: Mean values are shown as u=mean value. Asterisk (*) ford values outside specified normal range. Prepared and signed by Ancelmo Sheth [id number]
--- NOTE | 2016-07-08 10:35 | HHI.PR ---
Subjective Remarks Follow-up pneumonia. Not feeling good states everything is bothering her does not have any specific complaints. Currently on 3 L nasal cannula. Repeat hemoglobin 7.7 denies dizziness, weakness, chest pain and shortness of breath. No gross bleeding. MAXIMUM TEMPERATURE 100 Objective Vitals Vital Signs Date Time Temp Pulse Resp B/P Pulse Ox O2 Delivery O2 Flow Rate FiO2 07/08/16 08:00 98.0 102 17 134/69 95 07/08/16 07:30 Nasal Cannula 2.00 07/08/16 04:00 96.7 103 18 146/69 91 07/08/16 00:00 100.3 102 16 150/65 93 07/07/16 20:35 96 Nasal Cannula 2.00 07/07/16 20:00 96 07/07/16 19:00 98.4 106 18 149/64 92 07/07/16 18:44 Nasal Cannula 2.00 07/07/16 16:00 98.5 86 18 132/62 98 07/07/16 12:08 18 07/07/16 12:00 99.8 104 18 110/56 93 07/07/16 12:00 96.9 60 16 134/58 96 07/07/16 11:55 96 Nasal Cannula 3.00 I/O 07/07/16 07/07/16 07/07/16 07/08/16 07/08/16 07/08/16 07:00 15:00 23:00 07:00 15:00 23:00 Intake Total 755 ml 480 ml 240 ml 240 ml Balance 755 ml 480 ml 240 ml 240 ml Intake Oral 120 ml 480 ml 240 ml 240 ml IV Total 635 ml # Voids 1 3 2 3 # Bowel Movements 0 0 1 1 Result Diagram: 07/08/1628 07/08/1628 Imaging Last Impressions Chest X-Ray 07/07/16 0000 Signed Impressions: Service Date/Time: Thursday, July 07, 2016 09:51 - CONCLUSION: Basilar airspace disease and small left effusion suspected. Star Ferguson MD Femur X-Ray 07/05/16 0000 Signed Impressions: Service Date/Time: Tuesday, July 05, 2016 16:51 - CONCLUSION: Expected radiographic appearance post rodding of the distal shaft fracture of the right femur. Normal alignment. Refugio Ernandez MD Pelvis X-Ray 07/04/16 0000 Signed Impressions: Service Date/Time: June 04:46 - CONCLUSION: 1. Osteopenia with no acute fracture or malalignment. Calderon Hart MD Knee X-Ray 07/04/16 0000 Signed Impressions: Service Date/Time: June 03:01 - CONCLUSION: 1. Limited single view suboptimal study. A repeat exam is recommended. 2. Distal femur fracture of indeterminate age but likely acute. Calderon Hart MD Head CT 07/04/16 0000 Signed Impressions: Service Date/Time: June 04:55 - CONCLUSION: 1. No acute hemorrhage or mass effect. 2. Moderate atrophic change. 3. Mucosal thickening and air-fluid levels in the paranasal sinuses most characteristic of acute sinusitis. Calderon Hart MD Cervical Spine CT 07/04/16 0000 Signed Impressions: Service Date/Time: June 04:55 - CONCLUSION: Negative trauma CT. Calderon Hart MD Ankle X-Ray 07/04/16 0000 Signed Impressions: Service Date/Time: June 04:35 - CONCLUSION: 1. Limited suboptimal two-view study. 2. Diffuse osteopenia with no acute fracture or malalignment. 3. Diffuse mild osteoarthritic change. Calderon Hart MD Objective Remarks GENERAL: This is a well-nourished, well-developed patient, in no apparent distress on nasal cannula. SKIN: No rashes, ecchymoses or lesions. Cool and dry. Bruising bilateral upper extremity, skin tear right elbow and bilateral leg. HEAD: Atraumatic. Normocephalic. No temporal or scalp tenderness. EYES: Pupils equal round and reactive. Extraocular motions intact. No scleral icterus. No injection or drainage. ENT: Nose without bleeding, purulent drainage or septal hematoma. Throat without erythema, tonsillar hypertrophy or exudate. Uvula midline. Airway patent. NECK: Trachea midline. No JVD or lymphadenopathy. Supple, nontender, no meningeal signs. CARDIOVASCULAR: Regular rate and rhythm RESPIRATORY: Decreased Breath sounds equal bilaterally. No wheezes, rales, or rhonchi. GASTROINTESTINAL: Abdomen soft, non-tender, nondistended. No guarding. MUSCULOSKELETAL: Extremities without clubbing, cyanosis, or edema. No calf tenderness. Negative Homans sign bilaterally. Bilateral hand deformity consistent with rheumatoid arthritis NEUROLOGICAL: Awake and alert. Cranial nerves II through XII intact. Motor and sensory grossly within normal limits. Five out of 5 muscle strength in all muscle groups. Normal speech. Procedures Right femur retrograde intramedullary ector fixation A/P Problem List: (1) Femoral distal fracture ICD Code: S72.409A Status: Acute Assessment and Plan This is an 85-year-old female who presents to the emergency department for evaluation of right knee pain after she slipped and fell. Trauma workup shows right femur fracture. Right femur fracture status post repair. Stable continue postoperative care with wound care, physical therapy, incentive spirometry, DVT prophylaxis Pain management with Lortab and IV morphine Rheumatoid arthritis. Continue methotrexate and folic acid Urinary tract infection. Culture with Escherichia coli status post Rocephin and ciprofloxacin Macrocytic anemia. Continue folic acid. Adequate B-12 and folate levels. Worse hemoglobin 7.7. Repeat today and will transfuse to keep hemoglobin at least 8 Leukocytosis on steroids. Improving We'll monitor. She is clinically stable Hyperglycemia. Fasting glucose 88 Sinus tachycardia likely secondary to pain. Unremarkable TSH and magnesium. Episode of telemetry strips are reviewed unable to rule out A. fib. Follow-up echocardiogram. Continue to monitor telemetry sinus rhythm at this time. Continue Lopressor Bibasilar airspace disease likely hospital-acquired pneumonia. Ordered sputum and blood culture and continue Zosyn. Check urinary pneumococcal and Legionella antigen Chronic medical conditions of Depression and hypertension. Stable continue outpatient medications as appropriate DVT prophylaxis with SCD and early ambulation. Continue Lovenox Discharge Planning Not ready for discharge Problem Qualifiers (1) Femoral distal fracture: Qualified Code: S72.491A - Other closed fracture of distal end of right femur, initial encounter Donnell De La Garza MD July 08, 2016 10:35
[2016-07-08 12:35] LABS: HEMATOCRIT 21.9 % (35.0-46.0)
--- NOTE | 2016-07-08 13:13 | EKG ---
Date Performed: 07/07/2016 Time Performed: 13:20:23 PTAGE: 85 years EKG: SINUS TACHYCARDIA LOW QRS VOLTAGE IN PRECORDIAL LEADS MODERATE ST DEPRESSION ABNORMAL ECG A nterior ST-T wave changes are new from the old tracing. Atrial premature beats no longer present. PREVIOUS TRACING : 07/05/2016 01.03 DOCTOR: Clifton Rivero Interpretating Date/Time 07/08/2016 13:12:00
[2016-07-08] MEDS: MIRTAZAPINE 15 MG TAB PO SCH (21:44)
[2016-07-09 00:25] VITALS: BP 140/70; PULSE 98; RESP 17; TEMP 98; O2SAT 92
[2016-07-09] MEDS: PIPERACIL-TAZO 3.375 GM PREMIX 50 ML IV SCH ×4 (00:54→17:16)
[2016-07-09 04:25] VITALS: BP 147/77; PULSE 90; RESP 16; TEMP 97.5; O2SAT 92
[2016-07-09] MEDS: ENOXAPARIN SODIUM 30 MG/0.3 ML SYRINGE SQ SCH ×2 (05:51→16:56)
[2016-07-09 08:12] VITALS: BP 102/68; PULSE 83; RESP 18; TEMP 96.6; O2SAT 95
[2016-07-09] MEDS: SODIUM CHLORIDE 0.9% FLUSH 10 ML FLUSH IV FLUSH SCH ×2 (09:00→21:02)
[2016-07-09] MEDS: DOCUSATE SODIUM 100 MG CAP PO SCH ×2 (09:00→21:01)
[2016-07-09] MEDS: CITALOPRAM HYDROBROMIDE 20 MG TAB PO SCH (10:40)
[2016-07-09] MEDS: METOPROLOL TARTRATE 25 MG TAB PO SCH ×2 (10:40→21:01)
[2016-07-09] MEDS: FOLIC ACID 1 MG TAB PO SCH (10:40)
[2016-07-09] MEDS: predniSONE 5 MG TAB PO SCH (10:40)
[2016-07-09] MEDS: amLODIPine BESYLATE 5 MG TAB PO SCH (10:40)
[2016-07-09] MEDS: LACTIC ACID (AMMONIUM LACTATE) 12% LOTION 225 GM BTL TOPICAL SCH ×2 (10:41→21:01)
[2016-07-09 12:00] VITALS: BP 118/64; PULSE 79; RESP 18; TEMP 97.2; O2SAT 95
[2016-07-09] MEDS: SODIUM CHLORIDE 0.9% FLUSH 10 ML FLUSH IV FLUSH PRN ×2 (12:12→17:16)
--- NOTE | 2016-07-09 13:06 | HHI.PR ---
Subjective Remarks Follow-up anemia, tachycardia and pneumonia. Patient doesn't have any complaints denies chest pain, shortness of breath, weakness and palpitations. Telemetry shows sinus rhythm. Agrees with blood transfusion if needed pending labs today. Discussed with RN stable discharge if stable labs Objective Vitals Vital Signs Date Time Temp Pulse Resp B/P Pulse Ox O2 Delivery O2 Flow Rate FiO2 07/09/16 08:12 96.6 83 18 102/68 95 07/09/16 04:25 97.5 90 16 147/77 92 07/09/16 00:25 98.0 98 17 140/70 92 07/08/16 21:44 109 07/08/16 20:25 98.2 106 17 143/77 92 07/08/16 17:27 99 21 07/08/16 16:00 97.3 72 16 129/61 100 I/O 07/08/16 07/08/16 07/08/16 07/09/16 07/09/16 07/09/16 07:00 15:00 23:00 07:00 15:00 23:00 Intake Total 240 ml 240 ml 120 ml 0 ml 45 ml Output Total 500 ml Balance 240 ml -260 ml 120 ml 0 ml 45 ml Intake Oral 240 ml 240 ml 120 ml 0 ml IV Total 45 ml Output Urine Total 500 ml # Voids 3 1 1 1 # Bowel Movements 1 1 1 1 2 Result Diagram: 07/08/16 1209 07/08/16 0628 Imaging Last Impressions Chest X-Ray 07/07/16 0000 Signed Impressions: Service Date/Time: Thursday, July 07, 2016 09:51 - CONCLUSION: Basilar airspace disease and small left effusion suspected. Star Ferguson MD Femur X-Ray 07/05/16 0000 Signed Impressions: Service Date/Time: Tuesday, July 05, 2016 16:51 - CONCLUSION: Expected radiographic appearance post rodding of the distal shaft fracture of the right femur. Normal alignment. Refugio Ernandez MD Pelvis X-Ray 07/04/16 0000 Signed Impressions: Service Date/Time: June 04:46 - CONCLUSION: 1. Osteopenia with no acute fracture or malalignment. Calderon Hart MD Knee X-Ray 07/04/16 0000 Signed Impressions: Service Date/Time: June 03:01 - CONCLUSION: 1. Limited single view suboptimal study. A repeat exam is recommended. 2. Distal femur fracture of indeterminate age but likely acute. Calderon Hart MD Head CT 07/04/16 0000 Signed Impressions: Service Date/Time: June 04:55 - CONCLUSION: 1. No acute hemorrhage or mass effect. 2. Moderate atrophic change. 3. Mucosal thickening and air-fluid levels in the paranasal sinuses most characteristic of acute sinusitis. Calderon Hart MD Cervical Spine CT 07/04/16 0000 Signed Impressions: Service Date/Time: June 04:55 - CONCLUSION: Negative trauma CT. Calderon Hart MD Ankle X-Ray 07/04/16 Signed Impressions: Service Date/Time: June 04:35 - CONCLUSION: 1. Limited suboptimal two-view study. 2. Diffuse osteopenia with no acute fracture or malalignment. 3. Diffuse mild osteoarthritic change. Calderon Hart MD Objective Remarks GENERAL: This is a well-nourished, well-developed patient, in no apparent distress on nasal cannula. Hard of hearing SKIN: No rashes, ecchymoses or lesions. Cool and dry. Bruising bilateral upper extremity, skin tear right elbow and bilateral leg. HEAD: Atraumatic. Normocephalic. No temporal or scalp tenderness. EYES: Pupils equal round and reactive. Extraocular motions intact. No scleral icterus. No injection or drainage. ENT: Nose without bleeding, purulent drainage or septal hematoma. Throat without erythema, tonsillar hypertrophy or exudate. Uvula midline. Airway patent. NECK: Trachea midline. No JVD or lymphadenopathy. Supple, nontender, no meningeal signs. CARDIOVASCULAR: Regular rate and rhythm RESPIRATORY: Decreased Breath sounds equal bilaterally. No wheezes, rales, or rhonchi. GASTROINTESTINAL: Abdomen soft, non-tender, nondistended. No guarding. MUSCULOSKELETAL: Extremities without clubbing, cyanosis, or edema. No calf tenderness. Negative Homans sign bilaterally. Bilateral hand deformity consistent with rheumatoid arthritis NEUROLOGICAL: Awake and alert. Cranial nerves II through XII intact. Motor and sensory grossly within normal limits. Five out of 5 muscle strength in all muscle groups. Normal speech. Procedures Right femur retrograde intramedullary ector fixation A/P Problem List: (1) Femoral distal fracture ICD Code: S72.409A Status: Acute Assessment and Plan This is an 85-year-old female who presents to the emergency department for evaluation of right knee pain after she slipped and fell. Trauma workup shows right femur fracture. Right femur fracture status post repair. Stable continue postoperative care with wound care, physical therapy, incentive spirometry, DVT prophylaxis Pain management with Lortab and IV morphine Rheumatoid arthritis. Continue methotrexate and folic acid Urinary tract infection. Culture with Escherichia coli status post Rocephin and ciprofloxacin Macrocytic anemia. Continue folic acid. Adequate B-12 and folate levels. Worse hemoglobin 7.7. Repeat today and will transfuse to keep hemoglobin at least 8. Check iron studies Leukocytosis on steroids. Improving We'll monitor. She is clinically stable Hyperglycemia. Fasting glucose 88 Sinus tachycardia likely secondary to pain. Unremarkable TSH and magnesium. Episode of telemetry strips are reviewed unable to rule out A. fib. EF 55%. LVH with no blood clots.. Continue to monitor telemetry sinus rhythm at this time. Continue Lopressor Bibasilar airspace disease likely hospital-acquired pneumonia. Ordered sputum and blood culture and continue Zosyn. Check urinary pneumococcal and Legionella antigen Chronic medical conditions of Depression and hypertension. Stable continue outpatient medications as appropriate DVT prophylaxis with SCD and early ambulation. Continue Lovenox Discharge Planning Possible discharge today Problem Qualifiers (1) Femoral distal fracture: Qualified Code: S72.491A - Other closed fracture of distal end of right femur, initial encounter Donnell De La Garza MD July 09, 2016 13:06
[2016-07-09 13:54] LABS: AUTOMATED NEUTROPHIL # 10.3 TH/MM3 (1.8-7.7); BASOPHIL % 0.2 % (0.0-2.0); EOSINOPHIL # 0.1 TH/MM3 (0-0.4); EOSINOPHIL % 0.8 % (0.0-4.0); HEMATOCRIT 28.6 % (35.0-46.0); HEMO FLAGS DIFF FINAL; LYMPH % 4.7 % (9.0-44.0); LYMPHOCYTE # 0.5 TH/MM3 (1.0-4.8); MEAN CELL VOLUME 102.9 FL (80.0-100.0); MEAN CORPUSCULAR HEMOGLOBIN 34.6 PG (27.0-34.0); MEAN CORPUSCULAR HGB CONC 33.6 % (32.0-36.0); MONO % 3.3 % (0.0-8.0); PLATELET COUNT 384 TH/MM3 (150-450); RED BLOOD COUNT 2.78 MIL/MM3 (4.00-5.30); RED CELL DISTRIBUTION WIDTH 15.4 % (11.6-17.2); WHITE BLOOD COUNT 11.3 TH/MM3 (4.0-11.0)
[2016-07-09 14:15] LABS: ANION GAP 6 MEQ/L (5-15); BICARBONATE 31.6 MEQ/L (21.0-32.0); BLOOD UREA NITROGEN 12 MG/DL (7-18); CHLORIDE 100 MEQ/L (98-107); FERRITIN 150 NG/ML (8-252); GLOMERULAR FILTRATION RATE 89 ML/MIN (>89); MAGNESIUM 2.1 MG/DL (1.5-2.5); POTASSIUM 3.7 MEQ/L (3.5-5.1); SODIUM (NA) 138 MEQ/L (136-145); TRANSFERRIN IRON PROFILE 125 MG/DL (200-360)
[2016-07-09 14:51] VITALS: O2SAT 92
[2016-07-09 16:50] VITALS: BP 118/70; PULSE 80; RESP 16; TEMP 97.3; O2SAT 96
[2016-07-09] MEDS: ACETAMINOPHEN/HYDROcodone 325 MG/5 MG TAB PO PRN (17:18)
[2016-07-09] MEDS: MIRTAZAPINE 15 MG TAB PO SCH (21:01)
--- NOTE | 2016-07-10 18:31 | PD ---
Data Data Orders Knee, Ltd (1 Or 2vws) (07/04/16 ) Electrocardiogram (07/04/16 02:49) Basic Metabolic Panel (Bmp) (07/04/16 02:49) Complete Blood Count With Diff (07/04/16 02:49) Chest, Single Ap (07/04/16 02:49) Ecg Monitoring (07/04/16 02:49) Iv Access Insert/Monitor (07/04/16 02:49) Oximetry (07/04/16 02:49) Oxygen Administration (07/04/16 02:49) Propofol 200 Mg/20 Ml Inj (Diprivan 200 (07/04/16 03:00) Femur (Ap & Lat/2vws) (07/04/16 ) Ankle, Limited (Ap&Lat) (07/04/16 ) Ct Brain W/O Iv Contrast(Rout) (07/04/16 ) Ct Cerv Spine W/O Contrast (07/04/16 ) Urinary Catheter Management HOMER.Q8H (07/04/16 04:02) Urinalysis - C+S If Indicated (07/04/16 04:05) Pelvis, Ap Only (Routine) (07/04/16 ) Immobilizer Knee 20 Inch (07/04/16 ) Ice Cuff (07/04/16 ) Urine Culture (07/04/16 04:00) Ceftriaxone Inj (Rocephin Inj) (07/04/16 05:15) Consult Orthopedic (07/04/16 ) (Hub Use Only)Inp Phy Cons/Ref (07/04/16 ) Admit To Inpatient (07/04/16 ) Vital Signs (Adult) Q4H (07/04/16 05:59) Activity Bed Rest (07/04/16 05:59) Passenger Booking Clerk / Telemetry .CONTINUOUS (07/04/16 05:59) Sodium Chloride 0.9% Flush (Ns Flush) (07/04/16 06:00) Sodium Chloride 0.9% Flush (Ns Flush) (07/04/16 09:00) Ondansetron Inj (Zofran Inj) (07/04/16 06:00) Basic Metabolic Panel (Bmp) (07/05/16 06:00) Complete Blood Count With Diff (07/05/16 06:00) Case Management Consult (07/04/16 05:59) Naloxone Inj (Narcan Inj) (07/04/16 06:00) Inpatient Certification (07/04/16 ) Morphine Inj (Morphine Inj) (07/04/16 06:15) Ceftriaxone Inj (Rocephin Inj) (07/04/16 06:15) Ceftriaxone Inj (Rocephin Inj) (07/04/16 17:00) Admit Order (Ed Use Only) (07/04/16 ) [facility] Supervised Visit with TRISTIAN: No Narrative Course I was asked by Dr. Song to perform conscious sedation for this patient. She has a right-sided femur fracture. Risks discussed with the patient, and she is a conscious sedation for reduction of her fracture. Procedures Procedure Narrative After the risks and benefits were discussed the following procedure was performed: MODERATE SEDATION: The patient was placed on a special effects designer and pulse oximetry. An ambu bag and suction was immediately available at bedside. The patient was monitored by the nurse. Oxygen saturation , heart rate and blood pressure were monitored. Procedural sedation was acheived using propofol. The patient was observed until awake and alert. Procedural Sedation time in attendance was 15 minutes. Diagnosis Primary Impression: Femoral distal fracture Qualified Code: S72.491A - Other closed fracture of distal end of right femur , initial encounter Patient Instructions: Metoprolol (By mouth), Hydrocodone/Acetaminophen (By mouth), Amoxicillin/Clavulanate Potassium (By mouth), How to Use an Incentive Spirometer (DC), Heart Healthy Diet (DC), Home Safety (GEN), Bandage Change (DC) , Fall Prevention (DC), EDITH Hose (DC), Knee Immobilizer (DC), ORIF (DC), Non Weight Bearing Activity (DC) Scripts Metoprolol Tartrate (Lopressor)50 Mg Tab12.5 Mg PO BID #60 TAB Ref 0 Prov:Donnell De La Garza MD 07/07/16 Amoxicillin-Clavulanate (Augmentin)875-125 mg Nhi102 Mg PO BID #26 TAB Ref 0 not for use in CrCl <30 ml/min. Prov:Donnell De La Garza MD 07/07/16 Hydrocodone-Acetaminophen ([place])5-325 mg Tab1 Tab PO Q4H PRN (PAIN) #90 TAB Ref 0 Prov:Wayne So Jr., MD 07/05/16 Condition: Stable Yolanda Huang MD July 10, 2016 18:31
--- NOTE | 2016-07-18 13:22 | HHI.DS ---
Discharge Summary Admission Date July 04, 2016 at 06:12 Discharge Date: July 09, 2016 Admitting Diagnosis Femur fracture (1) Femoral distal fracture ICD Code: S72.409A Diagnosis: Principal Procedures Right femur retrograde intramedullary ector fixation Brief History - From Admission This is an 85-year-old female who presents to the emergency department for evaluation of right knee pain. She was ambulating to the bathroom when she slipped and fell. Immediately complain of right knee pain unable to bear weight. Denies any other injuries. No head trauma or loss of consciousness. Denies any symptoms prior to the fall. Trauma workup shows right femur fracture. She is hard of hearing making it challenging to obtain history. At this time, she is frustrated because she has been asked same questions throughout the day. She is also hungry and requesting food. Case discussed with RN. care home records also reviewed. Imaging Last Impressions Chest X-Ray 07/07/16 0000 Signed Impressions: Service Date/Time: Thursday, July 07, 2016 09:51 - CONCLUSION: Basilar airspace disease and small left effusion suspected. Star Ferguson MD Femur X-Ray 07/05/16 0000 Signed Impressions: Service Date/Time: Tuesday, July 05, 2016 16:51 - CONCLUSION: Expected radiographic appearance post rodding of the distal shaft fracture of the right femur. Normal alignment. Refugio Ernandez MD Pelvis X-Ray 07/04/16 0000 Signed Impressions: Service Date/Time: June 04:46 - CONCLUSION: 1. Osteopenia with no acute fracture or malalignment. Calderon Hart MD Knee X-Ray 07/04/16 0000 Signed Impressions: Service Date/Time: June 03:01 - CONCLUSION: 1. Limited single view suboptimal study. A repeat exam is recommended. 2. Distal femur fracture of indeterminate age but likely acute. Calderon Hart MD Head CT 07/04/16 0000 Signed Impressions: Service Date/Time: June 04:55 - CONCLUSION: 1. No acute hemorrhage or mass effect. 2. Moderate atrophic change. 3. Mucosal thickening and air-fluid levels in the paranasal sinuses most characteristic of acute sinusitis. Calderon Hart MD Cervical Spine CT 07/04/16 0000 Signed Impressions: Service Date/Time: June 04:55 - CONCLUSION: Negative trauma CT. Calderon Hart MD Ankle X-Ray 07/04/16 0000 Signed Impressions: Service Date/Time: June 04:35 - CONCLUSION: 1. Limited suboptimal two-view study. 2. Diffuse osteopenia with no acute fracture or malalignment. 3. Diffuse mild osteoarthritic change. Calderon Hart MD PE at Discharge GENERAL: This is a well-nourished, well-developed patient, in no apparent distress on nasal cannula. Hard of hearing SKIN: No rashes, ecchymoses or lesions. Cool and dry. Bruising bilateral upper extremity, skin tear right elbow and bilateral leg. HEAD: Atraumatic. Normocephalic. No temporal or scalp tenderness. EYES: Pupils equal round and reactive. Extraocular motions intact. No scleral icterus. No injection or drainage. ENT: Nose without bleeding, purulent drainage or septal hematoma. Throat without erythema, tonsillar hypertrophy or exudate. Uvula midline. Airway patent. NECK: Trachea midline. No JVD or lymphadenopathy. Supple, nontender, no meningeal signs. CARDIOVASCULAR: Regular rate and rhythm RESPIRATORY: Decreased Breath sounds equal bilaterally. No wheezes, rales, or rhonchi. GASTROINTESTINAL: Abdomen soft, non-tender, nondistended. No guarding. MUSCULOSKELETAL: Extremities without clubbing, cyanosis, or edema. No calf tenderness. Negative Homans sign bilaterally. Bilateral hand deformity consistent with rheumatoid arthritis NEUROLOGICAL: Awake and alert. Cranial nerves II through XII intact. Motor and sensory grossly within normal limits. Five out of 5 muscle strength in all muscle groups. Normal speech. Hospital Course This is an 85-year-old female who presents to the emergency department for evaluation of right knee pain after she slipped and fell. Trauma workup shows right femur fracture. Right femur fracture status post repair. Stable continue postoperative care with wound care, physical therapy, incentive spirometry, DVT prophylaxis Pain management with Lortab and IV morphine Rheumatoid arthritis. Continue methotrexate and folic acid Urinary tract infection. Culture with Escherichia coli status post Rocephin and ciprofloxacin Macrocytic anemia. Continue folic acid. Adequate B-12 and folate levels. Improved hb 9.6 Leukocytosis on steroids. Improving We'll monitor. She is clinically stable Hyperglycemia. Fasting glucose 88 Sinus tachycardia likely secondary to pain. Unremarkable TSH and magnesium. Episode of telemetry strips are reviewed unable to rule out A. fib. EF 55%. LVH with no blood clots. Continue to monitor telemetry sinus rhythm at this time. Continue Lopressor Bibasilar airspace disease likely hospital-acquired pneumonia. Ordered sputum and blood culture and continue Zosyn. Check urinary pneumococcal and Legionella antigen Chronic medical conditions of Depression and hypertension. Stable continue outpatient medications as appropriate DVT prophylaxis with SCD and early ambulation. Continue Lovenox Pt Condition on Discharge: Stable Discharge Disposition: Discharge to SNF Discharge Time: > 30 minutes Discharge Instructions DIET: Follow Instructions for: Heart Healthy Diet Activities you can perform: Regular-No Restrictions Activities to Avoid: Driving Other Activity Instructions: weight bearing per ortho Follow up Referrals: Orthopedics - 2 Weeks @ [facility] with Wayne So Jr., MD PCP Follow-up - 1 Week New Orders: X-RAY CHEST PA & LAT - 6 Weeks New Medications: Amoxicillin-Clavulanate (Augmentin) 875-125 mg Tab 875 MG PO BID not for use in CrCl <30 ml/min. Infection #26 Ref 0 TAB Hydrocodone-Acetaminophen ([place]) 5-325 mg Tab 1 TAB PO Q4H PRN PAIN #90 Ref 0 TAB Metoprolol Tartrate (Lopressor) 50 Mg Tab 12.5 MG PO BID Regulate Heart Beat #60 Ref 0 TAB Continued Medications: Alendronate (Fosamax) 70 Mg Tab 70 MG PO Q7D Osteoporosis Treatment #4 Ref 0 TAB Amlodipine (Norvasc) 5 Mg Tab 5 MG PO DAILY Blood Pressure Management #30 Ref 0 TAB Cholecalciferol (Vitamin D) 1,000 Unit Tab 5000 UNITS PO DAILY Nutritional Supplement #1 Ref 0 BOTTLE Citalopram (Celexa) 20 Mg Tab 20 MG PO DAILY Control Depression #30 Ref 0 TAB Folic Acid (Folic Acid) 5 Mg Cap 1 MG PO DAILY Nutritional Supplement Ref 0 CAP Methotrexate (Methotrexate) 2.5 Mg Tab 12.5 MG PO Q7D Ref 0 TAB Mirtazapine (Remeron) 15 Mg Tab 15 MG PO HS Depression Control #30 Ref 0 TAB Multiple Vitamins W/ Minerals (Ocuvite) 1 Tab 1 TAB PO DAILY Nutritional Supplement Ref 0 TAB Prednisone (Prednisone) 5 Mg Tab 5 MG PO DAILY Ref 0 TAB Donnell De La Garza MD Jul 18, 2016 13:22
== END 2016-07-09 22:00 | DRG 480 ==
LOC: NEPC 02:49 → NEDA 06:12 → NEDH 10:35 → N06A 15:19
PROVIDERS: ADMIT Internal Medicine; ATTEND Internal Medicine
PROC: 0QSBXZZ Reposition Right Lower Femur, External Approach (ICD-10-PCS; 2016-07-04)
PROC: 0QSB06Z Reposition Right Lower Femur with Intramedullary Internal Fixation Device, Open Approach (ICD-10-PCS; principal; 2016-07-05 15:06)
DX: S72.401A Unspecified fracture of lower end of right femur, initial encounter for closed fracture (principal); J18.9 Pneumonia, unspecified organism; N39.0 Urinary tract infection, site not specified; D53.9 Nutritional anemia, unspecified; M06.9 Rheumatoid arthritis, unspecified; I10 Essential (primary) hypertension; H91.90 Unspecified hearing loss, unspecified ear; R00.0 Tachycardia, unspecified; R73.9 Hyperglycemia, unspecified; B96.20 Unspecified Escherichia coli [E. coli] as the cause of diseases classified elsewhere; D72.829 Elevated white blood cell count, unspecified; Y95 Nosocomial condition; F32.9 Major depressive disorder, single episode, unspecified; M81.0 Age-related osteoporosis without current pathological fracture; W01.0XXA Fall on same level from slipping, tripping and stumbling without subsequent striking against object, initial encounter; Y93.01 Activity, walking, marching and hiking; Y92.129 Unspecified place in nursing home as the place of occurrence of the external cause
CPT/HCPCS: 27510; 51702; 70450; 71010; 72125; 72170; 73552; 73560; 73600; 76000; 80048; 81001; 82607; 82728; 82746; 83540; 83550; 83735; 84443; 85014; 85018; 85025; 86850; 86900; 86901; 87077; 87086; 87186; 93005; 93306; 94150; 94640; 96365; 96375; 99156; C1713; J0131; J0690; J0696; J1170; J1580; J1650; J1885; J2270; J2370; J2405; J2543; J2710; J3010; J3370; J7050; J7120; J7512; J7613; J9250; L1830